=== PATIENT | female | born 1940 | race Caucasian/White ===

== ENCOUNTER → 2017-08-18 07:38 | Outpatient (CLI) | payer MEDICARE, OTHER ==
[2014-12-13 12:18] VITALS: BMI 28.2
[~2017-08-18 07:38] MED LIST: BENICAR HCT 40-1 TA1 PO; CARDURA1 MG PO; CATAPRES0.1 MG PO; HYDROCHLOROTHIA25 MG PO; LEVOTHROID112 MCG PO; MIRAPEX0.25 MG PO; MIRAPEX1 MG PO; NEURONTIN600 MG PO; NORVASC10 MG PO; NORVASC5 MG PO; NULEV0.125 MG PO; PAMELOR10 MG PO; PRILOSEC20 MG PO; PROTONIX40 MG PO; SYNTHROID125 MCG PO; VITAMIN D5000 UNIT PO; ZESTRIL40 MG PO; ZOLOFT50 MG PO
== END | disposition home or self-care (01) ==
LOC: D.RT 07:38
DX: R05 Cough (principal)

== ENCOUNTER 2017-09-06 10:31 | Emergency (ER) | payer MEDICARE, OTHER ==
[2014-12-13 12:18] VITALS: BMI 28.2
[2017-09-06 11:33] LABS: APPEARANCE CLEAR (CLEAR); BILIRUBIN NEGATIVE (NEGATIVE); COLOR YELLOW (YELLOW); GLUCOSE NEGATIVE (NEGATIVE); KETONE NEGATIVE (NEGATIVE); NITRITE NEGATIVE (NEGATIVE); PROTEIN NEGATIVE (NEGATIVE); UROBILINOGEN NORMAL (NORMAL)
[2017-09-06 11:33] LABS: BASOPHILS 0.5 % (0-2); EOSINOPHILS 1.8 % (0-7); HEMOGLOBIN 12.4 g/dL (12-16); IMMATURE GRANULOCYTES 0.5 % (0-5); LYMPHOCYTES 7.9 % (15-50); MCH 30.6 pg (26.0-34.0); MCHC 32.6 g/dL (31.0-37.0); MCV 93.8 fL (80.0-100.0); MEAN PLATELET VOLUME 10.6 fL (7.4-10.4); MONOCYTES 7.9 % (2-11); NEUTROPHILS 81.4 % (40-80); RBC 4.05 10x6/uL (4.00-5.40); RDW 14.7 % (11.5-14.5); WBC 6.1 10x3/uL (4.8-10.8)
[2017-09-06 11:35] LABS: BACTERIA MODERATE /hpf (NONE SEEN); EPITHELIAL CELLS 0-5 /hpf (0-5); RED CELLS - URINE 0-5 /hpf (0-5); WHITE CELLS - URINE 0-5 /hpf (0-5)
[2017-09-06 11:36] LABS: PLATELET COUNT 158 10x3/uL (130-400)
[2017-09-06 11:53] LABS: ALBUMIN 3.7 g/dL (3.4-5.0); ANION GAP 9.6 mmol/L (8-16); BILIRUBIN - TOTAL 0.72 mg/dL (0.2-1.3); CALCIUM 8.7 mg/dL (8.5-10.1); CARBON DIOXIDE 33.1 mmol/L (21.0-32.0); POTASSIUM - SERUM 3.7 mmol/L (3.5-5.1)
== END 2017-09-06 15:15 | disposition home or self-care (01) ==
LOC: D.ER 10:31
PROVIDERS: Nurse Practitioner Family
DX: R06.00 Dyspnea, unspecified (principal); J06.9 Acute upper respiratory infection, unspecified

== ENCOUNTER → 2017-09-09 14:06 | Outpatient (CLI) | payer MEDICARE, OTHER ==
[2014-12-13 12:18] VITALS: BMI 28.2
== END | disposition home or self-care (01) ==
LOC: D.CT 14:06
DX: J98.4 Other disorders of lung (principal)

== ENCOUNTER → 2017-09-26 11:20 | Outpatient (CLI) | payer MEDICARE, OTHER ==
[2014-12-13 12:18] VITALS: BMI 28.2
== END | disposition home or self-care (01) ==
LOC: D.CT 11:20
DX: R06.00 Dyspnea, unspecified (principal)

== ENCOUNTER 2017-10-05 12:55 | Inpatient (IN) | payer MEDICARE, OTHER ==
--- NOTE | ~2017-10-05 | EC ---
PATIENT:AVEL ARTEAGA DATE OF SERVICE: 10/06/17 SEX: F MEDICAL RECORD: [id number] DATE OF : 44 LOCATION:D.M2 D.210 AGE OF PATIENT: 77 ADMISSION DATE: 10/06/17 REFERRING PHYSICIAN: INTERPRETING PHYSICIAN: CARO ADAMS MD ECHOCARDIOGRAM REPORT ECHO CHARGES 4 ECHO COMPLETE CLINICAL DIAGNOSIS: CP ECHOCARDIOGRAPHIC MEASUREMENTS (adult normal given) AC root (d.<3.7cm) 3.5 cm LV Septum d (<1.2 cm> 1.2 cm Valve Excursion 2.2 cm LV Septum (systole) 1.7 cm Left Atria (s.<4.0cm> 3.2 cm LVPW d(<1.2cm) 1.2 cm RV (d.<2.3cm) 2.3 cm LVPW (sytole) 1.9 cm LV diastole(<5.6CM) 5.4 cm MV E-F(>70mm/sec) cm LV systole 3.3 cm LVOT Diameter 1.8 cm MV exc.(>10mm) cm Est.ejection fraction (50-75%) % Pericardial Effusion N DOPPLER: LVIT cm/sec A 31.0 cm/sec E 63.0 cm/sec LA cm/sec RVSP 24.4 mmHg LVOT 115 cm/sec AOP1/2T m/s Asc. Ao 122 cm/sec RVOT 79.0 cm/sec RA cm/sec PA 88.0 cm/sec AV Gradient Peak 6.0 mmHg AV Mean 3.0 mmHg AV Area 2.4 cm MV Gradient Peak 3.3 mmHg MV Mean 1.2 mmHg MV Area cm COMMENTS: Surgical Technology Instructor: Haris SALDANAOE Account Retention Representative: Adelina Adams TAPE# PACS DATE OF SERVICE: 10/06/2017 INDICATION: The patient has hypertensive changes. FINDINGS: 1. The left ventricular mass has increased. She has LVH that is moderate. The patient's inflow characteristics are consistent with a pseudonormalized pattern. 2. The right ventricle has mild right ventricular hypertrophy, normal size, normal function. 3. Aortic valve is normal. ECHOCARDIOGRAM REPORT [id number] AVEL ARTEAGA 4. The mitral valve is normal. 5. Tricuspid valve is normal. 6. The pericardium is normal. 7. The right atrium is normal. 8. The right ventricle is normal. CONCLUSION: The patient has evidence of mild hypertensive heart disease with normal function. TRANSINT:[id number] Voice Confirmation ID: [id number] DOCUMENT ID: [id number] CARO ADAMS MD at 0807 CC: [id number] DICTATION DATE: 10/06/17 1530 DIRECTOR DIGITAL: 10/06/17 1846 DIS IN 10/07/17 [facility] [address] [id number]
[2017-10-05 13:41] LABS: BASOPHILS 0 % (0-2); EOSINOPHILS 0.5 % (0-7); HEMATOCRIT 39.5 % (36.0-48.0); HEMOGLOBIN 12.9 g/dL (12-16); IMMATURE GRANULOCYTES 1.9 % (0-5); LYMPHOCYTES 12.5 % (15-50); MCH 30.5 pg (26.0-34.0); MCHC 32.7 g/dL (31.0-37.0); MCV 93.4 fL (80.0-100.0); MEAN PLATELET VOLUME 10.3 fL (7.4-10.4); MONOCYTES 8.2 % (2-11); NEUTROPHILS 76.9 % (40-80); PLATELET COUNT 158 10x3/uL (130-400); RBC 4.23 10x6/uL (4.00-5.40); RDW 15.2 % (11.5-14.5)
[2017-10-05 13:55] LABS: ALBUMIN 3.6 g/dL (3.4-5.0); ALKALINE PHOSPHATASE 76 U/L (46-116); ALT (SGPT) 22 U/L (10-68); BILIRUBIN - TOTAL 0.75 mg/dL (0.2-1.3); CALC OSMOLALITY 267 mosm/kg (275-300); CARBON DIOXIDE 31.4 mmol/L (21.0-32.0); CHLORIDE - SERUM 97 mmol/L (98-107); GLUCOSE 105 mg/dL (74-106); POTASSIUM - SERUM 4.1 mmol/L (3.5-5.1); PROTEIN - SERUM 6.9 g/dL (6.4-8.2); SODIUM 133 mmol/L (136-145); UREA NITROGEN 18 mg/dL (7-18); eGFR NON AFRICAN AMERICAN 57 mL/min (90-120)
[2017-10-05 14:08] LABS: CKMB 1.3 U/L (0.0-3.6); CREATINE KINASE 54 UL (21-215)
[2017-10-05 14:09] LABS: TROPONIN-I < 0.017 ng/mL (0.000-0.060)
[2017-10-05 14:56] LABS: APPEARANCE CLEAR (CLEAR); BILIRUBIN NEGATIVE (NEGATIVE); COLOR STRAW (YELLOW); GLUCOSE NEGATIVE (NEGATIVE); KETONE NEGATIVE (NEGATIVE); NITRITE NEGATIVE (NEGATIVE); PROTEIN NEGATIVE (NEGATIVE); SPECIFIC GRAVITY 1.005 (1.005-1.020); UROBILINOGEN NORMAL (NORMAL)
[2017-10-05 18:54] LABS: CKMB 1.1 U/L (0.0-3.6); CREATINE KINASE 46 UL (21-215); TROPONIN-I < 0.017 ng/mL (0.000-0.060)
[2017-10-05] MEDS ORDERED: STERAPRED DS 1010 MG PO (20:17)
[2017-10-05] MEDS ORDERED: DOXYCYCLINE HY100 M2 PO ×2 (20:18→20:19)
[2017-10-05] MEDS ORDERED: CARDURA8 MG PO (20:22)
[2017-10-05] MEDS ORDERED: COREG25 MG PO (20:22)
[2017-10-05] MEDS ORDERED: MUCINEX1200 MG/BO PO (20:24)
[2017-10-05] MEDS ORDERED: ADVAIR 500/501 DISK INH (20:25)
[2017-10-05 22:00] VITALS: BMI 32.0
[2017-10-06] VITALS (7 sets, daily range): BP systolic 118–151; BP diastolic 51–70; BMI 32.0
[2017-10-06 00:58] LABS: CKMB 1.2 U/L (0.0-3.6); CREATINE KINASE 36 UL (21-215)
[2017-10-06 00:59] LABS: TROPONIN-I 0.016 ng/mL (0.000-0.060)
[2017-10-06 06:54] LABS: CREATINE KINASE 34 UL (21-215); TROPONIN-I < 0.017 ng/mL (0.000-0.060)
[2017-10-06] MEDS ORDERED: REQUIP1 MG PO (07:44)
[2017-10-06] MEDS ORDERED: PROVENTIL/2.5 MG/3 M INH (07:46)
[2017-10-06] MEDS ORDERED: FUROSEMIDE20 MG PO (07:51)
[2017-10-06] MEDS ORDERED: K-TAB10 MEQ PO (07:51)
[2017-10-07 04:00] VITALS: BP 154/71
[2017-10-07 05:44] LABS: BASOPHILS 0.1 % (0-2); EOSINOPHILS 2.5 % (0-7); HEMATOCRIT 38.3 % (36.0-48.0); HEMOGLOBIN 12.5 g/dL (12-16); IMMATURE GRANULOCYTES 1.3 % (0-5); LYMPHOCYTES 31.6 % (15-50); MCH 30.6 pg (26.0-34.0); MCHC 32.6 g/dL (31.0-37.0); MCV 93.6 fL (80.0-100.0); MEAN PLATELET VOLUME 10.6 fL (7.4-10.4); MONOCYTES 8.9 % (2-11); NEUTROPHILS 55.6 % (40-80); PLATELET COUNT 146 10x3/uL (130-400); RBC 4.09 10x6/uL (4.00-5.40); RDW 15.2 % (11.5-14.5); WBC 9.7 10x3/uL (4.8-10.8)
[2017-10-07 06:02] LABS: ANION GAP 10.5 mmol/L (8-16); CALCIUM 8.5 mg/dL (8.5-10.1); CARBON DIOXIDE 30.1 mmol/L (21.0-32.0); POTASSIUM - SERUM 3.6 mmol/L (3.5-5.1)
[2017-10-07] MEDS ORDERED: CATAPRES0.1 MG PO (07:29)
[2017-10-07 08:46] VITALS: BP 106/73
[2017-10-10 11:16] LABS: METAN - URINE 68 ug/L (Undefined); METAN - URINE 24HR 122 ug/24 hr (45-290)
[2017-10-17 07:25] LABS: 5HIAA - 24HR 3.2 mg/24 hr (0.0-14.9); 5HIAA - UR 1.8 mg/L (Undefined)
[2017-10-17 08:18] LABS: VMA - URINE 1.6 mg/L (Undefined)
== END 2017-10-07 11:15 | disposition home or self-care (01) | DRG 305 ==
LOC: D.ER 12:55 → OBSVTIME 18:11 → D.EDHOLD 18:11 → D.M2 18:52
PROVIDERS: Family Medicine
DX: I16.1 Hypertensive emergency (principal); R07.89 Other chest pain

== ENCOUNTER → 2017-10-27 10:15 | Outpatient (CLI) | payer MEDICARE, OTHER ==
[2017-10-06 07:31] VITALS: BMI 32.0
[~2017-10-27 10:15] MED LIST changes: +ADVAIR 500/501 DISK INH; +CARDURA8 MG PO; +COREG25 MG PO; +DOXYCYCLINE HY100 M2 PO; +FUROSEMIDE20 MG PO; +K-TAB10 MEQ PO; +MUCINEX1200 MG/BO PO; +NORVASC2.5 MG PO; +PROVENTIL/2.5 MG/3 M INH; +REQUIP1 MG PO; +STERAPRED DS 1010 MG PO
== END | disposition home or self-care (01) ==
LOC: D.RT 10:15
DX: R06.00 Dyspnea, unspecified (principal)

== ENCOUNTER 2017-11-05 09:24 | Outpatient (CLI) | payer MEDICARE, OTHER ==
[~2017-11-05] VITALS: Ht 170.2 cm; Wt 95.5 kg
--- NOTE | ~2017-11-05 | OP ---
PATIENT NAME: AVEL ARTEAGA MEDICAL RECORD: [id number] :44 LOCATION:D.CAT ADMISSION DATE: SURGEON: MARCIA MACHADO MD DATE OF OPERATION: 11/05/2017 PROCEDURES: 1. Left heart catheterization. 2. Selective coronary angiography. 3. Left ventriculogram. 4. Intravascular ultrasound of left circumflex. PROCEDURE IN DETAIL: After informed consent was obtained and after detailed explanation of risks, benefits as well as alternative therapies, the patient elected to proceed with angiogram. The right radial area was prepped and draped in normal sterile fashion. The right radial artery was cannulated via modified Seldinger technique with placement of 6-Algerian sheath. All catheters exchanged through this sheath. FINDINGS: Left ventriculogram was performed in standard 30-degree DEL ROSARIO view, reveals good cardiac wall motion throughout all segments. Overall ejection fraction estimated at 60%. SELECTIVE CORONARY ANGIOGRAPHY: 1. Left main is with no significant angiographic disease. 2. Left anterior descending has mild irregularities, but no flow-limiting stenosis. 3. The left circumflex has mild irregularities, questionable area in the mid vessel is no greater than 30% confirmed by intravascular ultrasound. 4. The right coronary artery has moderate irregularities, but no flow-limiting stenosis. OVERALL IMPRESSION: Minimal coronary artery disease is present. No flow-limiting stenosis. Chest pain is noncardiac in etiology. TRANSINT:[id number] Voice Confirmation ID: [id number] DOCUMENT ID: [id number] MARCIA MACHADO MD at 1056 CC: [id number] DICTATION DATE: 11/05/17 1117 HAND SPRING REPAIRER: 11/05/17 1155 DEP CLI 11/05/17 [place] [id number] [place] [id number]
--- NOTE | ~2017-11-05 | HEMODYNAMI ---
PATIENT:AVEL ARTEAGA MEDICAL RECORD: [id number] : 44 LOCATION:SUMMER ADMISSION DATE: 11/05/17 Generatedon:11/05/201711:18 Patient name: AVEL ARTEAGA Patient #: [id number] SSN: D OB: 1940 Date of study: 11/05/2017 Page: Of Hemodynamic Procedure Report Patient Data Patient Demographics Procedure consent was obtained First Name: AVEL Gender: Female Last Name: JENNI : 1940 Patient #: [id number] Age: 77 year(s) Race: Unknown Additional ID: [id number] Contact details Address: [address] [place] [address] State: [place] City: [facility] Zip code: [address] Past Medical History Allergies Allergen Reaction Date Comments Reported Other allergy 11/05/2017 see chart Admission Admission Data Admission Date: 11/05/2017 Admission Time: 9:24 Procedure Procedure Types Cath Procedure Diagnostic Procedure C [facility] w/Coronaries FFR/IVUS Intra-Coronary IVUS Initial Procedure Description Procedure Date Procedure Date: 11/05/2017 Procedure Start Time: 11:04 Procedure End Time: 11:17 Procedure Staff Name Function Ismael Zhu MD Performing Physician Shyla Jaimes RT Monitor Melissa Liu RT Scrub Jesus Pablo RN Nurse Procedure Data Cath Procedure Fluoroscopy Diagnostic fluoroscopy Total fluoroscopy Time: 3.6 time: 3.6 min min Diagnostic fluoroscopy Total fluoroscopy dose: 694 dose: 694 mGy mGy Contrast Material Contrast Material Type Amount (ml) Isovue 300 74 Entry Location Entry Primary Successful Side Size Upsize Upsize Entry Closure Taylor ccessful Closure Location (Fr) 1 (Fr) 2 (Fr) Remarks Device Remarks Radial Right 6 Fr Mechanical TR band artery Short Compression Estimated blood loss: 10 ml Procedure Complications No complications Procedure Medications Medication Administration Route Dosage 0.9% NaCl I.V. 100 ml/hr Oxygen NC 2 l/min Heparin Flush Bag added to field 2 bags (1000units/500ml NS) Lidocaine 2% added to field 20 Radial Cocktail added to field 1 syringe (Verapomil 2mg/Nitro 400mcg/Heparin 1500units) Versed I.V. 1 mg Fentanyl I.V. 50 mcg Radial Cocktail I.A. 1 syringe (Verapomil 2mg/Nitro 400mcg/Heparin 1500units) Heparin Bolus I.V. 4000 units Fentanyl I.V. 50 mcg Versed I.V. 1 mg Hemodynamics Rest Heart Rate: 57 (bpm) Snapshots Pre Cath Intra NCS Post Cath Vital Signs Time Heart Resp SPO2 etCO2 NIBP (mmHg) Rhythm Pain Sedation Rate (ipm) (%) (mmHg) Status Level (bpm) 10:48:08 63 16 96 38.8 179/81(142) NSR 0 (11) 10(A) , No pain 10:52:33 56 16 92 30.6 155/74(133) NSR 0 (11) 10(A) , No pain 10:56:51 56 16 88 0 131/69(97) NSR 0 (11) 10(A) , No pain 11:01:11 57 17 93 12.6 137/70(106) NSR 0 (11) 9(A) , No pain 11:05:27 62 14 85 30.5 136/82(115) NSR 0 (11) 9(A) , No pain 11:09:49 63 17 94 26.1 149/67(128) NSR 0 (11) 9(A) , No pain 11:14:11 61 15 95 33.5 154/72(132) NSR 0 (11) 10(A) , No pain Medications Time Medication Route Dose Verified Delivered Reason Note s Effectiveness by by 10:51:08 0.9% NaCl I.V. 100 Jesus Jesus Per physician ml/hr Bev Pablo RN RN 10:51:18 Oxygen NC 2 l/min Jesus Jesus Per physician Bev Pablo RN RN 10:51:31 Heparin Flush added 2 bags Jesus Jesus used for Bag to Lorigan Julietteigan procedure (1000units/500ml [facility] RN RN NS) 10:51:40 Lidocaine 2% added 20ml Jesus Jesus for local to vial Lorigan Lorigan anesthetic field SRINIVASAN RN 10:51:55 Radial Cocktail added 1 Jesus Jesus used for (Verapomil to syringe Bev Pablo procedure 2mg/Nitro field RN RN 400mcg/Heparin 1500units) 10:57:22 Versed I.V. 1 mg Jesus Jesus for sedation Bev Pablo RN RN 10:57:33 Fentanyl I.V. 50 mcg Jesus Jesus for sedation Bev Pablo RN RN 11:05:25 Radial Cocktail I.A. 1 Jesus Ismael for (Verapomil syringe Bev Zhu MD vasodilation 2mg/Nitro RN 400mcg/Heparin 1500units) 11:12:00 Heparin Bolus I.V. 4000 Jesus Jesus for units Bev Pablo anticoagulation RN RN 11:12:11 Fentanyl I.V. 50 mcg Jesus Jesus for sedation Bev Pablo RN RN 11:14:03 Versed I.V. 1 mg Jesus Jesus for sedation Bev Pablo RN director of guidance in public [employer] Log Time Note 10:35:24 Shyla COLES(R) sent for patient. Start room use. 10:35:25 Time tracking: Regular hours 10:35:29 Plan of Care:Hemodynamics will remain stable., Cardiac rhythm will remain stable., Comfort level will be maintained., Respiratory function will remain adequate., Patient/ family verbilizes understanding of procedure., Procedure tolerated without complication., Recovers from procedure without complications.. 10:46:39 Patient received from Pre/Post Procedure Room to CCL 2 Alert and oriented. Tansferred to table in Supine position. 10:46:40 Warm blankets applied, and juwan hugger turned on for patient comfort. 10:46:41 Correct patient and procedure confirmed by team. 10:46:42 Signed procedure consent form obtained from patient. 10:46:43 ECG and BP/O2 sat monitors applied to patient. 10:46:44 Vital chart was started 10:51:08 0.9% NaCl 100 ml/hr I.V. was administered by Jesus Pablo RN; Per physician; 10:51:18 Oxygen 2 l/min NC was administered by Jesus Pablo RN; Per physician; 10:51:30 Baseline sample Acquired. 10:51:31 Heparin Flush Bag (1000units/500ml NS) 2 bags added to field was administered by Jesus Pablo RN; used for procedure; 10:51:35 Rhythm: paced 10:51:36 Full Disclosure recording started 10:51:40 Lidocaine 2% 20ml vial added to field was administered by Jesus Pablo RN; for local anesthetic; 10:51:45 H&P Date Dictated: 11/04/2017 Within 30 days and on chart., H&P Addendum completed by physician on day of procedure. (MUST COMPLETE FOR ALL OUTPATIENTS). 10:51:47 Pre-procedure instructions explained to patient. 10:51:55 Radial Cocktail (Verapomil 2mg/Nitro 400mcg/Heparin 1500units) 1 syringe added to field was administered by Jesus Pablo RN; used for procedure; 10:51:57 Family in waiting room. 10:51:58 Patient NPO since Midnight. 10:52:14 Patient allergic to Other allergysee chart 10:53:34 Is the patient allergic to Iodine/contrast media? No. 10:53:42 Was the patient premedicated? Yes 10:53:48 Is patient on blood thinner?No 10:53:50 Patient diabetic? No. 10:53:57 Snore? Yes 10:53:58 Sleep apnea? No 10:54:10 Patient pain scale 0/10 SOB. 10:54:18 IV patent on arrival in left forearm with 0.9% NaCl at O. 10:54:25 Lab results completed and on chart. 10:54:29 Right Radial & Right Groin area was prepped with chlora-prep and draped in sterile fashion 10:54:31 Alarms reviewed by R. N. 10:54:31 Sharps counted by scrub and verified by R.N. 10:54:32 Physician paged 10:56:05 Physician arrived 10:56:48 --------ALL STOP TIME OUT------ 10:56:51 Final Timeout: patient, procedure, and site verified with staff and physician. All members of the team are in agreement. 10:56:59 Right Radial & Right Groin site verified by team. 10:57:02 Physical assessment completed. ASA score P 2 - A patient with mild systemic disease as per Ismael Zhu MD. 10:57:07 Sedation plan: IV Moderate Sedation Medication:Versed, Fentanyl 10:57:12 Use device set Femoral Dx 10:57:14 ACIST Syringe (19518) opened to sterile field. 10:57:15 Bag Decanter (2001S) opened to sterile field. 10:57:16 Medline Cath Pack ([id number]) opened to sterile field. 10:57:22 Versed 1 mg I.V. was administered by Jesus Pablo RN; for sedation; 10:57:26 DIAGNOSTIC WIRE .035 260cm J wire (867446) opened to sterile field. 10:57:28 ACIST Hand Control (40855) opened to sterile field. 10:57:28 ACIST Manifold (96396) opened to sterile field. 10:57:30 Tegaderm 4 x 4 (1626W) opened to sterile field. 10:57:33 Fentanyl 50 mcg I.V. was administered by Jesus Pablo RN; for sedation; 10:57:44 SHEATH 6Fr Prelude Radial ([id number]) opened to sterile field. 11:01:47 Zero performed for pressure channel P1 11:03:06 Procedure started. 11:04:11 Local anesthetic to right radial artery with Lidocaine 2% by Ismael Zhu MD.INITIAL ACCESS ONLY 11:04:29 A 6 Fr Short sheath was inserted into the Right Radial artery 11:04:58 LV angiography performed. 11:05:13 GUIDE 6Fr [place] 4.0 catheter (685588) opened to sterile field. 11:05:25 Radial Cocktail (Verapomil 2mg/Nitro 400mcg/Heparin 1500units) 1 syringe I.A. was administered by Ismael Zhu MD; for vasodilation; 11:06:05 LCA angiography performed. 11:06:08 LV gram done using DEL ROSARIO 11:07:24 EF : 60 % 11:08:15 LCA angiography performed. 11:09:36 RCA angiography performed. 11:09:43 Catheter removed. 11:09:59 INFLATOR Merit BasixCompak (CU7861) opened to sterile field. 11:10:00 CHOICE PT Extra Support 182cm wire ([id number]) opened to sterile field. 11:10:01 [place] IVUS Catheter (39070S) opened to sterile field. 11:10:51 GUIDE 6FR XBLAD 3.5 catheter ([id number]) opened to sterile field. 11:10:56 Proceeding to intervention. 11:12:00 Heparin Bolus 4000 units I.V. was administered by Jesus Pablo RN; for anticoagulation; 11:12:01 6 Fr XBLAD 3.5 guide catheter was inserted over the wire 11:12:07 Choice PT wire advanced. 11:12:08 Wire advanced across lesion. 11:12:10 IVUS catheter advanced over wire. 11:12:11 Fentanyl 50 mcg I.V. was administered by Jesus Pablo RN; for sedation; 11:14:03 Versed 1 mg I.V. was administered by Jesus Pablo RN; for sedation; 11:14:44 IVUS catheter removed over wire. 11:14:52 TR BAND Standard ([id number]) opened to sterile field. 11:15:29 Wire removed. 11:15:30 Guide catheter removed. 11:15:52 Sheath removed intact; hemostasis achieved with Mechanical Compression to the Right Radial artery. 11:15:55 Procedure ended.(Physican Out) 11:16:04 Fluoroscopy time 03.60 minutes. 11:16:09 Fluoroscopy dose: 694 mGy 11:16:09 Flurop Dose total: 694 11:16:12 Contrast amount:Isovue 300 74ml. 11:16:14 Sharps counted by scrub and verified by R.N. 11:16:16 TR band inflated with 13cc of air. 11:16:18 Insertion/operative site no bleeding no hematoma. 11:16:19 Post Procedure Pulses reassessed and unchanged 11:16:23 Post-procedure physical assessment completed. ASA score P 2 - A patient with mild systemic disease as per Ismael Zhu MD. 11:16:26 Post procedure rhythm: unchanged. 11:16:29 Estimated blood loss: 10 ml 11:16:30 Post procedure instruction explained to patient.Patient verbalizes understanding. 11:16:47 Procedure type changed to Cath procedure, Diagnostic procedure, LHC, LHC w/Coronaries, FFR/IVUS, Intra-Coronary IVUS Initial 11:16:48 Procedure and supply charges have been captured, reviewed, submitted and are correct. 11:17:14 Procedure Complication : No complications 11:17:27 See physician's report for complete and final results. 11:17:29 Report given to Pre/Post Procedure Room. 11:17:32 Patient transfered to Pre/Post Procedure Room with Stretcher. 11:17:34 Procedure ended. 11:17:34 Full Disclosure recording stopped 11:18:07 Vital chart was stopped Device Usage Item Name Manufacture Quantity Catalog Number Hospital Part Current M inimal Lot# / Charge Number Stock Stock Serial# Code ACIST Syringe Acist 1 45346 605942 682527 933009 2 0 (15744) Medical Systems Inc Bag Decanter Microtek 1 2001S 128710 44827 065326 5 (2001S) Medical Inc. Medline Cath Cardinal 1 [id number] 871092 35267 048686 5 Pack Health ([id number]) DIAGNOSTIC WIRE St [place] 1 855445 181635 030051 486854 3 0 .035 260cm J wire (935481) ACIST Hand Acist 1 91276 944032 449848 398462 5 Control (75287) Medical Systems Inc ACIST Manifold Acist 1 14995 298892 524774 825665 5 (17800) Medical Systems Inc Tegaderm 4 x 4 3M 1 1626W 874475 656391 065482 5 (1626W) SHEATH 6Fr Merit 1 [id number] 743975 371954 067983 5 Prelude Radial Medical ([id number]) GUIDE 6Fr [place] Terumo 1 40-4438 955661 722819 984366 1 4.0 catheter (427004) INFLATOR Merit Merit 1 PU5956 381530 319260 058588 1 5 [employer] Inc.[facility] (ON4685) CHOICE PT Extra [place] 1 [id number] 308796 389002 924107 5 Support 182cm Scientific wire ([id number]) [place] 1 13547H 782279 262528 726367 8 [place] IVUS Catheter (47408G) GUIDE 6FR XBLAD Cardinal 1 [id number] 542111 324078 423098 1 0 3.5 catheter Health (32671503) TR BAND Terumo 1 [id number] 809157 261568 336273 4 0 Standard ([id number]) Signature Audit [place] Stage Time Signature Unsigned Intra-Procedure 11/05/2017 Shyla Jaimes 11:18:04 AM RT(R) Signatures Monitor : Shyla Jaimes Signature : RT Date : Time : [address] [place] [address]
[~2017-11-05 09:24] MED LIST changes: -NORVASC2.5 MG PO
[2017-11-05] MEDS ORDERED: NORVASC2.5 MG PO (09:41)
[2017-11-05 09:50] VITALS: BP 142/45; Ht 170.2 cm; Wt 95.5 kg
[2017-11-05 10:17] LABS: BASOPHILS 0.6 % (0-2); EOSINOPHILS 3.2 % (0-7); HEMATOCRIT 36.6 % (36.0-48.0); HEMOGLOBIN 11.6 g/dL (12-16); IMMATURE GRANULOCYTES 0.4 % (0-5); LYMPHOCYTES 28.2 % (15-50); MCH 30.4 pg (26.0-34.0); MCHC 31.7 g/dL (31.0-37.0); MCV 95.8 fL (80.0-100.0); MEAN PLATELET VOLUME 10.4 fL (7.4-10.4); MONOCYTES 11.3 % (2-11); NEUTROPHILS 56.3 % (40-80); RBC 3.82 10x6/uL (4.00-5.40); RDW 14.4 % (11.5-14.5)
[2017-11-05 10:25] LABS: ANION GAP 8.2 mmol/L (8-16); CALCIUM 8.9 mg/dL (8.5-10.1); CARBON DIOXIDE 30.4 mmol/L (21.0-32.0); CREATININE - SERUM 1.1 mg/dL (0.6-1.3); POTASSIUM - SERUM 3.6 mmol/L (3.5-5.1)
[2017-11-05 10:38] LABS: PLATELET COUNT 178 10x3/uL (130-400)
== END 2017-11-05 16:50 | disposition home or self-care (01) ==
LOC: D.CATH 09:24
PROVIDERS: Internal Medicine Interventional Cardiology
DX: R07.89 Other chest pain (principal); Z01.812 Encounter for preprocedural laboratory examination

== ENCOUNTER → 2018-01-15 10:33 | Outpatient (CLI) | payer MEDICARE, OTHER ==
[2017-11-05 09:50] VITALS: BMI 32.9
[~2018-01-15 10:33] MED LIST changes: +NORVASC2.5 MG PO
== END | disposition home or self-care (01) ==
LOC: D.CT 10:30
DX: R10.9 Unspecified abdominal pain (principal); R10.2 Pelvic and perineal pain

== ENCOUNTER → 2018-04-20 12:48 | Outpatient (CLI) | payer MEDICARE, OTHER ==
[2017-11-05 09:50] VITALS: BMI 32.9
== END | disposition home or self-care (01) ==
LOC: D.CT 12:48
DX: I70.202 Unspecified atherosclerosis of native arteries of extremities, left leg (principal)

== ENCOUNTER 2018-07-04 10:58 | Inpatient (IN) | payer MEDICARE, OTHER ==
[2018-07-04] VITALS (8 sets, daily range): BP systolic 106–150; BP diastolic 44–75; BMI 32.9
[~2018-07-04] VITALS: Ht 170.2 cm; Wt 95.5 kg
--- NOTE | ~2018-07-04 | MORECARE ---
CASE MANAGEMENT DISCHARGE SUMMARY PATIENT: AVEL ARTEAGA UNIT: [id number] ADM DATE: 07/04/18 AGE: 78 : 42 SEX: F ROOM/BED: D.7428 AUTHOR: INA DEMARCO PHYSICIAN: REFERRING PHYSICIAN: MIKAEL REED MD DATE OF SERVICE: 07/07/18 Discharge Plan Patient Name: AVEL ARTEAGA Facility: [facility]:[place] : 1940 Planned Disposition: Home Anticipated Discharge Date: 07/08/18 Discharge Date: Expected LOS: 4 Initial Reviewer: [email or web address] Initial Review Date: 07/07/2018 Generated: 07/07/18 6:34 pm Comments DCP- Discharge Planning Updated by [email or web address]: Hari Moreira on 07/07/18 4:[address] Patient Name: AVEL ARTEAGA Admission Status: ER Accout number: [id number] Admission Date: 07-04-2018 : 1940 Admission Diagnosis:SHORTNESS OF BREATH Attending: MIKAEL REED Current LOS: 3 Anticipated DC Date: 07-08-2018 Planned Disposition: Home Primary Insurance: MEDICARE A & B Discharge Planning Comments: CM MET WITH PT AND SPOUSE IN ROOM TO DISCUSS DISCHARGE PLANNING AND NEEDS. AVEL ARTEAGA provided verbal consent to discuss current and ongoing needs with/in the presence of: SPOUSE, RENETTA. PT REPORTS LIVING AT HOME INDEPENDENTLY WITH HER SPOUSE OF OVER 50 YEARS. PT HAS CPAP AND NEBULIZER FROM [facility]. PT HAS NO OUTSIDE SERVICES ASSISTING IN THE HOME. CM DISCUSSED AVAILABILITY OF HOME HEALTH, REHAB SERVICES AND MEDICAL EQUIPMENT. PT DENIES DISCHARGE NEEDS, STATES SHE HAS A PERFECT CAREGIVER IN HER SPOUSE. PT REPORTS HER SPOUSE WILL PICK HER UP FOR DISCHARGE HOME. IMPORTANT MESSAGE FROM MEDICARE PROVIDED AND EXPLAINED. PT PLANS TO DISCHARGE HOME WITH SPOUSE, HAS NO ANTICIPATED NEEDS FOR DISCHARGE. CM TO FOLLOW AND ASSIST NEEDED. Spinning And Winding Supervisor: Hari Moreira DCPIA - Discharge Planning Initial Assessment Updated by [email or web address]: Hari Moreira on 07/07/18 5:26 pm * Is the patient Alert and Oriented? Yes * How many steps to enter\exit or inside your home? * PCP DR. REED * Pharmacy [facility] * Preadmission Environment Home with Family * ADLs Independent * Equipment CPAP Nebulizer * Other Equipment [facility] PATIENT - EQUIPMENT PROVIDER * List name and contact numbers for known caregivers / representatives who currently or will assist patient after discharge: RENETTA ARTEAGA, SPOUSE, * Verbal permission to speak to the caregivers and representatives has been obtained from the patient. Yes * Community resources currently utilized None * Please name any agencies selected above. NONE * Additional services required to return to the preadmission environment? No * Can the patient safely return to the preadmission environment? Yes * Has this patient been hospitalized within the prior 30 days at any hospital? No Coverage Notice Reviewer: [email or web address] Linsey Moreira Notice Issued Date-Time: 07/07/2018 12:45 Notice Type: IM Discharge Notice Notice Delivered To: Patient Relationship to Patient: Healthcare Financial Analyst Name: Delivery Method: HAND - Hand Delivered Jodee Days: Prior Verbal Notification: Recipient Understood Notice: Yes Recipient Signature: Yes Med Rec Note Co-signed by Attending: Coverage Notice Comment: Last DP export: 07/07/18 4:25 Patient Name: AVEL ARTEAGA Page [id number] at 1734 All edits/amendments must be made on the electronic document DICTATION DATE: 07/07/181733 BUSINESS INTELLIGENCE ANALYST: ROCIO 07/07/181733 RPT#: [id number] DC DATE: STATUS: ADM IN [facility] [address] [place] [address] END OF REPORT
--- NOTE | ~2018-07-04 | EC ---
PATIENT:AVEL ARTEAGA DATE OF SERVICE: 07/04/18 SEX: F MEDICAL RECORD: [id number] DATE OF : 44 LOCATION:D. D.212 AGE OF PATIENT: 78 ADMISSION DATE: 07/04/18 REFERRING PHYSICIAN: INTERPRETING PHYSICIAN: MARCIA ZHU MD ECHOCARDIOGRAM REPORT ECHO CHARGES 4 ECHO COMPLETE Date: 07/06/18 CLINICAL DIAGNOSIS: A-FIB ECHOCARDIOGRAPHIC MEASUREMENTS (adult normal given) AC root (d.<3.7cm) 3.2 cm LV Septum d (<1.2 cm> 1.2 cm Valve Excursion 2.0 cm LV Septum (systole) 1.8 cm Left Atria (s.<4.0cm> 4.1 cm LVPW d(<1.2cm) 1.3 cm RV (d.<2.3cm) 2.4 cm LVPW (sytole) 1.8 cm LV diastole(<5.6CM) 5.1 cm MV E-F(>70mm/sec) cm LV systole 3.6 cm LVOT Diameter 1.8 cm MV exc.(>10mm) cm Est.ejection fraction (50-75%) % DOPPLER: LVIT cm/sec A cm/sec E 115 cm/sec LA cm/sec RVSP 26.0 mmHg LVOT 105 cm/sec AOP1/2T m/s Asc. Ao 108 cm/sec RVOT 74.0 cm/sec RA cm/sec PA 95.0 cm/sec AV Gradient Peak 4.6 mmHg AV Mean 2.4 mmHg AV Area 2.4 cm MV Gradient Peak 6.7 mmHg MV Mean 2.1 mmHg MV Area cm COMMENTS: Travel Money Advisor: Haris SALDANAOE Employment Security Officer: 1 Dr. Zhu TAPE# PACS Pericardial Effusion N DATE OF SERVICE: 07/06/2018 PROCEDURE: Echocardiogram. FINDINGS: 1. Left ventricular chamber size is within normal limits. Left ventricular systolic function is normal. Overall ejection fraction estimated at 55%. 2. Left atrium, right atrium, and right ventricle chamber sizes are mildly dilated. Left atrium measures 4.1 cm. 3. Valvular structures have normal structure and motion. ECHOCARDIOGRAM REPORT [id number] AVEL ARTEAGA 4. Doppler interrogation reveals xwywzxjs-bj-zsispm regurgitation, icin-va-arpmonjw tricuspid regurgitation, no other valvular insufficiency or stenosis. Pulmonary systolic pressure is estimated at 26 mmHg. 5. No evidence of pericardial effusion or left ventricular thrombus. TRANSINT:[id number] Voice Confirmation ID: [id number] DOCUMENT ID: [id number] MARCIA ZHU MD at 1704 CC: [id number] DICTATION DATE: 07/06/18 1308 HITCHER: 07/06/18 1328 ADM IN [address] [id number] [place] [address]
--- NOTE | ~2018-07-04 | HP ---
PATIENT: AVEL ARTEAGA MEDICAL RECORD: [id number] ACCOUNT: [id number] LOCATION:[address] : 44 ADMISSION DATE: 07/04/18 PCP: No PCP HISTORY AND PHYSICAL EXAMINATION DATE OF ADMISSION: 07/04/2018 CHIEF COMPLAINT: Shortness of breath. HISTORY OF PRESENT ILLNESS: This is a 78-year-old white female followed by Dr. Chávez with no history of heart trouble. She has had shortness of breath off and on for a long time but really got worse yesterday and she was brought in by EMS today. She was found to have atrial fibrillation with a controlled heart rate. Also, anemia with a hemoglobin of 10.4 (last hemoglobin that I can find was in September 2017 and it was 12.9). The patient denies any chest pain, but she has felt like her heart is beating funny, but her main thing is that she is "struggling to breathe." She is admitted for further evaluation. PAST MEDICAL HISTORY: Hypothyroidism, restless leg syndrome, GERD, osteoarthritis, fibromyalgia, hypertension, sleep apnea - on CPAP. Colonoscopy by Dr. Zhong in the past. PAST SURGICAL HISTORY: Lumbar spine surgery. She has had cataract repair. She had cholecystectomy. ALLERGIES: ODELL INHIBITORS, CEPHALOSPORINS, LEVAQUIN, AND MORPHINE. HOME MEDICATIONS: Include vitamin D3 10,000 units a week, levothyroxine 150 mcg once a day, nortriptyline 10 mg p.o. at bedtime, Prilosec or Protonix or equivalent 40 mg once a day, amlodipine 2.5 mg once a day, ropinirole 3 mg 4 times a day, doxazosin 8 mg once a day, sertraline 50 mg once a day, and carvedilol 25 mg twice a day. HABITS: She never smoked. No alcohol or drugs. SOCIAL HISTORY: , retired teacher. FAMILY HISTORY: Father of heart trouble. Mother of heart trouble. Sibling has heart trouble, diabetes, and cancer. REVIEW OF SYSTEMS: GENERAL: No major weight changes. HEENT: No particular sinus or allergy problems. RESPIRATORY: No known history of asthma or emphysema. CARDIAC: She sees Dr. Zhu maybe once a year, but she states she has no history of heart trouble. GASTROINTESTINAL: She has had reflux. GENITOURINARY: No significant problems there. MUSCULOSKELETAL: She has arthritis and fibromyalgia. NEUROLOGIC: No seizures, no migraine headaches. PSYCHIATRIC: She has some depression. PHYSICAL EXAMINATION: VITAL SIGNS: Temperature 97.9, pulse 90, respirations 18, blood pressure 150/58, O2 sat 95%. HISTORY AND PHYSICAL [id number] AVEL ARTEAGA GENERAL: She does not appear to be in acute distress. She is awake and alert. HEENT: Grossly within normal limits. NECK: Supple. No JVD or bruit. HEART: Irregularly irregular with a controlled rate. LUNGS: Fairly clear. ABDOMEN: Soft, obese, nontender. EXTREMITIES: No edema. LABORATORY DATA: CBC with a white count of 7400, hemoglobin 10.4, hematocrit 33.5. Basic metabolic panel is unremarkable. Liver functions are okay. ProBNP is elevated at 1537, iron is normal at 53, TIBC normal at 342, ferritin is normal at 24. We will check a B12 and Hemoccult stool. EKG shows atrial fibrillation with a controlled rate. Chest x-ray with borderline cardiomegaly, central vascular congestion. ASSESSMENT: 1. Shortness of breath with the new diagnosis of atrial fibrillation with a controlled rate. 2. Normocytic anemia. 3. Hypertension. 4. Hypothyroidism. PLAN: She is admitted, placed on telemetry. Cardiology is consulted. We will Hemoccult stool. Check a B12 level, check thyroid functions. Other tests or procedures as warranted. TRANSINT:[id number] Voice Confirmation ID: [id number] DOCUMENT ID: [id number] JOSEPH HYLTON MD at 1243 CC: [id number] DICTATION DATE: 07/04/182252 WRECKER DRIVER: 07/05/18 0105 ADM IN [facility] [address] [place] [address]
--- NOTE | ~2018-07-04 | MORECARE ---
CASE MANAGEMENT DISCHARGE SUMMARY PATIENT: AVEL ARTEAGA UNIT: [id number] ADM DATE: 07/04/18 AGE: 78 : 42 SEX: F ROOM/BED: D.9 AUTHOR: INA DEMARCO PHYSICIAN: REFERRING PHYSICIAN: MIKAEL REED MD DATE OF SERVICE: 07/07/18 Discharge Plan Patient Name: AVEL ARTEAGA Facility: [facility]:[place] : 1940 Planned Disposition: Home Anticipated Discharge Date: 07/08/18 Discharge Date: Expected LOS: 4 Initial Reviewer: [email or web address] Initial Review Date: 07/07/2018 Generated: 07/07/18 6:25 pm Coverage Notice Reviewer: [email or web address] - Hari Moreira Notice Issued Date-Time: 07/07/2018 12:45 Notice Type: IM Discharge Notice Notice Delivered To: Patient Relationship to Patient: Training Facilitator Name: Delivery Method: HAND - Hand Delivered Jodee Days: Prior Verbal Notification: Recipient Understood Notice: Yes Recipient Signature: Yes Med Rec Note Co-signed by Attending: Coverage Notice Comment: Patient Name: AVEL ARTEAGA Page 90212 at 1725 All edits/amendments must be made on the electronic document DICTATION DATE: 07/07/181724 ROLL PANNER: ROCIO 07/07/181724 RPT#: [id number] DC DATE: STATUS: ADM IN [place] [address] [place] [address] END OF REPORT
--- NOTE | ~2018-07-04 | MORECARE ---
CASE MANAGEMENT DISCHARGE SUMMARY PATIENT: AVEL ARTEAGA UNIT: [id number] ADM DATE: 07/04/18 AGE: 78 : 42 SEX: F ROOM/BED: D.5794 AUTHOR: INA DEMARCO PHYSICIAN: REFERRING PHYSICIAN: MIKAEL REED MD DATE OF SERVICE: 07/08/18 Discharge Plan Patient Name: AVEL ARTEAGA Facility: [facility]:[place] : 1940 Planned Disposition: Home Anticipated Discharge Date: 07/08/18 Discharge Date: 07/08/2018 Expected LOS: 4 Initial Reviewer: [email or web address] Initial Review Date: 07/07/2018 Generated: 07/08/18 12:09 pm Comments DCP- Discharge Planning Updated by [email or web address]: Hari Moreira on 07/07/18 4:[address] Patient Name: AVEL ARTEAGA Admission Status: ER Accout number: [id number] Admission Date: 07-04-2018 : 1940 Admission Diagnosis:SHORTNESS OF BREATH Attending: MIKAEL REED Current LOS: 3 Anticipated DC Date: 07-08-2018 Planned Disposition: Home Primary Insurance: MEDICARE A & B Discharge Planning Comments: CM MET WITH PT AND SPOUSE IN ROOM TO DISCUSS DISCHARGE PLANNING AND NEEDS. AVEL ARTEAGA provided verbal consent to discuss current and ongoing needs with/in the presence of: SPOUSE, RENETTA. PT REPORTS LIVING AT HOME INDEPENDENTLY WITH HER SPOUSE OF OVER 50 YEARS. PT HAS CPAP AND NEBULIZER FROM [facility]. PT HAS NO OUTSIDE SERVICES ASSISTING IN THE HOME. CM DISCUSSED AVAILABILITY OF HOME HEALTH, REHAB SERVICES AND MEDICAL EQUIPMENT. PT DENIES DISCHARGE NEEDS, STATES SHE HAS A PERFECT CAREGIVER IN HER SPOUSE. PT REPORTS HER SPOUSE WILL PICK HER UP FOR DISCHARGE HOME. IMPORTANT MESSAGE FROM MEDICARE PROVIDED AND EXPLAINED. PT PLANS TO DISCHARGE HOME WITH SPOUSE, HAS NO ANTICIPATED NEEDS FOR DISCHARGE. CM TO FOLLOW AND ASSIST NEEDED. Visual Basic Developer: Hari Moreira DCPIA - Discharge Planning Initial Assessment Updated by [email or web address]: Hari Moreira on 07/07/18 5:26 pm * Is the patient Alert and Oriented? Yes * How many steps to enter\exit or inside your home? * PCP DR. REED * Pharmacy [facility] * Preadmission Environment Home with Family * ADLs Independent * Equipment CPAP Nebulizer * Other Equipment [facility] - EQUIPMENT PROVIDER * List name and contact numbers for known caregivers / representatives who currently or will assist patient after discharge: RENETTA ARTEAGA, SPOUSE, * Verbal permission to speak to the caregivers and representatives has been obtained from the patient. Yes * Community resources currently utilized None * Please name any agencies selected above. NONE * Additional services required to return to the preadmission environment? No * Can the patient safely return to the preadmission environment? Yes * Has this patient been hospitalized within the prior 30 days at any hospital? No Coverage Notice Reviewer: [email or web address] Linsey Moreira Notice Issued Date-Time: 07/07/2018 12:45 Notice Type: IM Discharge Notice Notice Delivered To: Patient Relationship to Patient: Pharmacognosy Teacher Name: Delivery Method: HAND - Hand Delivered Jodee Days: Prior Verbal Notification: Recipient Understood Notice: Yes Recipient Signature: Yes Med Rec Note Co-signed by Attending: Coverage Notice Comment: Last DP export: 07/07/18 4:34 Patient Name: AVEL ARTEAGA Page 65001 at 1109 All edits/amendments must be made on the electronic document DICTATION DATE: 07/08/181108 WINE MAKER: ROCIO 07/08/181108 RPT#: [id number] DC DATE:07/08/18 STATUS: DIS IN [facility] [address] [place] [address] END OF REPORT
[2018-07-04] MEDS ORDERED: OMEPRAZOLE20 M1 PO (11:04)
[2018-07-04 11:44] LABS: BASOPHILS 0.3 % (0-2); EOSINOPHILS 6.9 % (0-7); HEMATOCRIT 33.5 % (36.0-48.0); HEMOGLOBIN 10.4 g/dL (12-16); IMMATURE GRANULOCYTES 0.3 % (0-5); LYMPHOCYTES 16.5 % (15-50); MCH 28.3 pg (26.0-34.0); MEAN PLATELET VOLUME 10.9 fL (7.4-10.4); PLATELET COUNT 149 10x3/uL (130-400); RBC 3.68 10x6/uL (4.00-5.40); RDW 15.2 % (11.5-14.5); WBC 7.4 10x3/uL (4.8-10.8)
[2018-07-04 11:59] LABS: ALBUMIN 3.5 g/dL (3.4-5.0); ALKALINE PHOSPHATASE 83 U/L (46-116); ALT (SGPT) 17 U/L (10-68); BILIRUBIN - TOTAL 0.55 mg/dL (0.2-1.3); CALC OSMOLALITY 274 mosm/kg (275-300); CALCIUM 8.7 mg/dL (8.5-10.1); CARBON DIOXIDE 29.9 mmol/L (21.0-32.0); CHLORIDE - SERUM 103 mmol/L (98-107); CREATININE - SERUM 0.9 mg/dL (0.6-1.3); GLUCOSE 90 mg/dL (74-106); POTASSIUM - SERUM 3.9 mmol/L (3.5-5.1); PROTEIN - SERUM 6.8 g/dL (6.4-8.2); SODIUM 138 mmol/L (136-145); UREA NITROGEN 10 mg/dL (7-18); eGFR NON AFRICAN AMERICAN 64 mL/min (90-120)
[2018-07-04 12:04] LABS: PRO BNP 1537 pg/mL (0-450); TROPONIN-I < 0.017 ng/mL (0.000-0.060)
[2018-07-04 13:36] LABS: % SATURATION 15 % (15-55); IRON 53 ug/dl (35-150); TOTAL IRON BIND CAPACITY 342 ug/dl (260-445); UNSAT IRON BIND CAPACITY 289 ug/dl (150-375)
[2018-07-04] MEDS ORDERED: NEXIUM20 MG PO (16:10)
[2018-07-04] MEDS ORDERED: VITAMIN D5000 UNIT PO (16:16)
[2018-07-04] MEDS ORDERED: MAGNESIUM OXID250 MG PO (16:34)
[2018-07-04] MEDS ORDERED: [UNRECOGNIZED DRUG - REMARK] (16:55)
[2018-07-05 03:45] VITALS: BP 114/69
[2018-07-05 06:19] LABS: BASOPHILS 0.3 % (0-2); EOSINOPHILS 5.6 % (0-7); HEMOGLOBIN 9.9 g/dL (12-16); IMMATURE GRANULOCYTES 0.6 % (0-5); LYMPHOCYTES 16.5 % (15-50); MCH 27.8 pg (26.0-34.0); MCHC 30.9 g/dL (31.0-37.0); MCV 89.9 fL (80.0-100.0); MEAN PLATELET VOLUME 11.3 fL (7.4-10.4); MONOCYTES 11.5 % (2-11); NEUTROPHILS 65.5 % (40-80); PLATELET COUNT 134 10x3/uL (130-400); RBC 3.56 10x6/uL (4.00-5.40); RDW 15.1 % (11.5-14.5); WBC 6.8 10x3/uL (4.8-10.8)
[2018-07-05 06:56] LABS: ANION GAP 11.1 mmol/L (8-16); CALCIUM 8.3 mg/dL (8.5-10.1); CARBON DIOXIDE 28.5 mmol/L (21.0-32.0); POTASSIUM - SERUM 3.6 mmol/L (3.5-5.1); T4 THYROXIN - FREE 1.46 ng/dL (0.76-1.46); THYROID STIMULATING HORMONE 1.21 uIU/mL (0.36-3.74)
[2018-07-05 08:13] VITALS: BP 127/79
[2018-07-05 11:28] VITALS: BP 112/59
[2018-07-05 16:35] VITALS: BP 122/65
[2018-07-05 20:52] VITALS: BP 124/84
[2018-07-06] VITALS: BP 122/60
[2018-07-06 04:00] VITALS: BP 133/64
[2018-07-06 08:06] VITALS: BP 127/52
[2018-07-06 11:40] VITALS: BP 127/77
[2018-07-06 14:17] VITALS: Ht 170.2 cm; Wt 95.5 kg
[2018-07-06 16:03] VITALS: BP 113/47
[2018-07-06 19:00] VITALS: BP 116/60
[2018-07-07 00:45] VITALS: BP 112/61
[2018-07-07 04:57] VITALS: BP 103/64
[2018-07-07 05:24] LABS: BASOPHILS 0.5 % (0-2); EOSINOPHILS 5.4 % (0-7); HEMATOCRIT 35.7 % (36.0-48.0); HEMOGLOBIN 11.1 g/dL (12-16); IMMATURE GRANULOCYTES 0.4 % (0-5); MCHC 31.1 g/dL (31.0-37.0); MCV 89.9 fL (80.0-100.0); MEAN PLATELET VOLUME 11.3 fL (7.4-10.4); MONOCYTES 11.1 % (2-11); NEUTROPHILS 64.6 % (40-80); RBC 3.97 10x6/uL (4.00-5.40); RDW 15.1 % (11.5-14.5); WBC 8.6 10x3/uL (4.8-10.8)
[2018-07-07 05:44] LABS: PLATELET COUNT 182 10x3/uL (130-400)
[2018-07-07 05:55] LABS: ALBUMIN 3.3 g/dL (3.4-5.0); ANION GAP 11.7 mmol/L (8-16); BILIRUBIN - TOTAL 0.46 mg/dL (0.2-1.3); CALCIUM 8.7 mg/dL (8.5-10.1); CARBON DIOXIDE 30.6 mmol/L (21.0-32.0); CREATININE - SERUM 1.2 mg/dL (0.6-1.3); POTASSIUM - SERUM 3.3 mmol/L (3.5-5.1); PROTEIN - SERUM 6.9 g/dL (6.4-8.2)
[2018-07-07 08:40] VITALS: BP 112/55
[2018-07-07 12:22] VITALS: BP 104/51
[2018-07-07 14:19] LABS: IMMUNOFIXATION Note: (()); IMMUNOGLOBULIN A 120 mg/dL (64-422); IMMUNOGLOBULIN G 721 mg/dL (700-1600); IMMUNOGLOBULIN M 65 mg/dL (26-217)
[2018-07-07 17:10] LABS: SPE - A/G RATIO 1.1 (0.7-1.7); SPE - ALBUMIN 3.2 g/dL (2.9-4.4); SPE - ALPHA-1 GLOBULIN 0.3 g/dL (0.0-0.4); SPE - ALPHA-2 GLOBULIN 0.7 g/dL (0.4-1.0); SPE - GAMMA GLOBULIN 0.8 g/dL (0.4-1.8); SPE - M-SPIKE Not Observed g/dL (Not Observed)
[2018-07-07 20:42] VITALS: BP 94/48
[2018-07-08 01:09] VITALS: BP 110/57
[2018-07-08 04:48] VITALS: BP 103/62
[2018-07-08 06:19] LABS: BASOPHILS 0.3 % (0-2); HEMATOCRIT 34.4 % (36.0-48.0); HEMOGLOBIN 10.9 g/dL (12-16); IMMATURE GRANULOCYTES 0.4 % (0-5); MCH 28.1 pg (26.0-34.0); MCHC 31.7 g/dL (31.0-37.0); MCV 88.7 fL (80.0-100.0); MEAN PLATELET VOLUME 11.9 fL (7.4-10.4); MONOCYTES 11.4 % (2-11); NEUTROPHILS 63.9 % (40-80); PLATELET COUNT 187 10x3/uL (130-400); RBC 3.88 10x6/uL (4.00-5.40); RDW 15.2 % (11.5-14.5); WBC 9.3 10x3/uL (4.8-10.8)
[2018-07-08 06:48] LABS: ANION GAP 12.1 mmol/L (8-16); CALCIUM 8.6 mg/dL (8.5-10.1); CARBON DIOXIDE 29.1 mmol/L (21.0-32.0); CREATININE - SERUM 1.1 mg/dL (0.6-1.3); POTASSIUM - SERUM 3.2 mmol/L (3.5-5.1)
[2018-07-08] MEDS ORDERED: ELIQUIS5 MG PO (07:33)
[2018-07-08] MEDS ORDERED: LOPRESSOR25 MG PO (07:34)
[2018-07-08] MEDS ORDERED: LASIX20 MG PO (07:35)
[2018-07-08] MEDS ORDERED: K-DUR20 MEQ PO ×2 (07:35→07:47)
[2018-07-08 08:09] VITALS: BP 118/40
== END 2018-07-08 10:56 | disposition home or self-care (01) | DRG 811 ==
LOC: D.ER 10:58 → D.M2 14:11 → D.EDHOLD 14:11 → D.MS 15:15 → D.M2 15:29
PROVIDERS: Emergency Medicine; Family Medicine; Internal Medicine Hematology & Oncology
DX: D50.9 Iron deficiency anemia, unspecified (principal); I50.31 Acute diastolic (congestive) heart failure; I16.1 Hypertensive emergency; I11.0 Hypertensive heart disease with heart failure; E03.9 Hypothyroidism, unspecified; G25.81 Restless legs syndrome; G47.30 Sleep apnea, unspecified; E66.01 Morbid (severe) obesity due to excess calories; Z68.32 Body mass index [BMI] 32.0-32.9, adult; I48.91 Unspecified atrial fibrillation; K21.9 Gastro-esophageal reflux disease without esophagitis

== ENCOUNTER 2018-08-12 10:07 | Outpatient (CLI) | payer MEDICARE, BC ==
[~2018-08-12] VITALS: Ht 170.2 cm; Wt 95.5 kg
--- NOTE | ~2018-08-12 | HEMODYNAMI ---
PATIENT:AVEL ARTEAGA MEDICAL RECORD: [id number] : 44 LOCATION:SUMMER ADMISSION DATE: 08/12/18 Generatedon:08/12/201812:19 Patient name: AVEL ARTEAGA Patient #: [id number] SSN: D OB: 1940 Date of study: 08/12/2018 Page: Of Hemodynamic Procedure Report Patient Data Patient Demographics Procedure consent was obtained First Name: AVEL Gender: Female Last Name: JENNI : 1940 Patient #: [id number] Age: 78 year(s) Race: Unknown Additional ID: [id number] Contact details Address: [address] [place] [address] State: [place] City: [facility] Zip code: [address] Past Medical History Allergies Allergen Reaction Date Comments Reported Other allergy 11/05/2017 see chart Other allergy 08/12/2018 ANCEF, CECLOR, DURACT, KEFLEX, LEVAQUIN, MORPHINE Admission Admission Data Admission Date: 08/12/2018 Admission Time: 10:07 Height (in.): 67 BSA: 2.08 (m2) Height (cm.): 170.18 BMI: 33.52 (kg/m2) Weight (lbs.): 214 Weight (kg.): 97.07 Procedure Procedure Types Cath Procedure Diagnostic Procedure Cardioversion External Procedure Description Procedure Date Procedure Date: 08/12/2018 Procedure Start Time: 12:07 Procedure End Time: 12:18 Procedure Staff Name Function Ismael Zhu MD Performing Physician Antoni Don RT Monitor Shanta Owens RN Nurse Dane Ceron RN Nurse Binh Whittington CRNA Additional personnel Staci Yañez RT Monitor Procedure Data Cath Procedure Estimated blood loss: 0 ml Procedure Complications No complications Procedure Medications Medication Administration Route Dosage Oxygen etCO2 Nasal cannula 2 l/min Refer to Anesthesia Notes for Sedation Medications Hemodynamics Rest BSA: 2.08 (m2) O2 Consumption: Estimated: 282.88 (ml/min) O2 Consumption indexed : Estimated:136 (ml/min/m) Pre Cath Intra NCS Post Cath Vital Signs Time Heart Resp SPO2 etCO2 NIBP (mmHg) Rhythm Pain Sedation Rate (ipm) (%) (mmHg) Status Level (bpm) 11:53:33 87 15 97 0 128/88(115) A-Fib 0 (11) 10(A) , No pain 11:59:23 100 24 98 25.6 137/75(117) A-Fib 0 (11) 10(A) , No pain 12:03:52 98 22 94 36.9 145/76(110) A-Fib 0 (11) 10(A) , No pain 12:08:24 69 25 97 10.5 133/80(113) NSR 0 (11) 9(A) , No pain 12:12:54 55 19 100 11.3 123/65(80) NSR 0 (11) 9(A) , No pain 12:15:49 52 22 100 9.8 120/63(97) NSR 0 (11) 10(A) , No pain Medications Time Medication Route Dose Verified Delivered Reason Notes Effective ness by by 12:04:17 Oxygen etCO2 2 Ismael Womack used for Nasal l/min Marko Owens marketing associate cannula 12:04:55 Refer to Ismael Womack Anesthesia Marko Owens RN Notes for Sedation Medications Procedure Log Time Note 11:30:17 Dane Ceron RN sent for patient. Start room use. 11:30:30 Time tracking: Regular hours (M-F 7:00 - 5:00) 11:30:34 Plan of Care:Hemodynamics will remain stable., Cardiac rhythm will remain stable., Comfort level will be maintained., Respiratory function will remain adequate., Patient/ family verbilizes understanding of procedure., Procedure tolerated without complication., Recovers from procedure without complications.. 11:45:50 Patient arrived from PCU to CCL 3. Patient remains on bed/stretcher for procedure. 11:51:58 Warm blankets applied, and juwan hugger turned on for patient comfort. 11:51:58 Correct patient and procedure confirmed by team. 11:52:00 Signed procedure consent form obtained from patient. 11:52:00 ECG and BP/O2 sat monitors applied to patient. 11:52:08 Vital chart was started 11:52:59 Rhythm: atrial fibrillation 11:53:01 Full Disclosure recording started 11:53:12 H&P Date Dictated: 08/06/2018 Within 30 days and on chart., H&P Addendum completed by physician on day of procedure. (MUST COMPLETE FOR ALL OUTPATIENTS). 11:53:12 Pre-procedure instructions explained to patient. 11:53:13 Pre-op teaching completed and patient verbalized understanding. 11:53:15 Family in waiting room. 11:53:17 Patient NPO since Midnight. 11:53:19 Is the patient allergic to Iodine/contrast media? No. 11:53:21 Is patient on blood thinner?Yes 11:53:32 ACC The patient was administered the following blood thiners within the last 24 hours: Eliquis 11:53:34 Patient diabetic? No. 11:53:36 Previous problem with sedation/anesthesia? No ? 11:53:37 Snore? Yes 11:53:38 Sleep apnea? Yes 11:53:44 Deviated septum? No 11:53:44 Opens mouth fully? Yes 11:53:45 Sticks out tongue? Yes 11:53:46 Airway obstruction? No ? 11:53:48 Dentures? No ? 11:59:31 Binh Whittington CRNA present and monitoring patient for TIVA. 11:59:35 Quick Combo opened to sterile field. 11:59:36 Quick combo pads placed on patients chest and back. 11:59:59 Patient pain scale 0/10 ?. 12:00:05 IV patent on arrival in left forearm with 0.9% NaCl at O. 12:00:07 Lab results completed and on chart. 12:00:11 Alarms reviewed by Kaye Price 12:04:17 Oxygen 2 l/min etCO2 Nasal cannula was administered by Shanta Owens RN; used for procedure; 12:04:55 Refer to Anesthesia Notes for Sedation Medications was administered by Shanta Owens RN; ; 12:05:48 Patient allergic to Other allergyANCEF, CECLOR, DURACT, KEFLEX, LEVAQUIN, MORPHINE 12:05:57 Patient Height : 67 inches 12:05:59 Patient Weight : 214 lbs 12:06:03 --------ALL STOP TIME OUT------ 12:06:03 Final Timeout: patient, procedure, and site verified with staff and physician. All members of the team are in agreement. 12:06:09 Physical assessment completed. ASA score P 3 - A patient with severe systemic disease as per Ismael Zhu MD. 12:06:12 Sedation plan: TIVA Medication:Propofol 12:07:51 Procedure started. 12:09:35 Defibrillator synced and charged to 275 Joules. 12:09:43 Shock delivered. 12:09:51 Patient cardioverted to sinus rhythm . 12:10:09 Procedure ended.(Physican Out) 12:12:31 Post-procedure physical assessment completed. ASA score P 3 - A patient with severe systemic disease as per Ismael Zhu MD. 12:12:36 Post procedure rhythm: sinus bradycardia 12:12:38 Estimated blood loss: 0 ml 12:12:41 Post procedure instruction explained to patient.Patient verbalizes understanding. 12:12:41 Patient needs reinforcement of post procedure teaching. 12:12:57 Procedure and supply charges have been captured, reviewed, submitted and are correct. 12:12:59 Procedure Complication : No complications 12:18:15 Vital chart was stopped 12:18:15 See physician's report for complete and final results. 12:18:18 Report given to Pre/Post Procedure Room. 12:18:20 Patient transfered to Pre/Post Procedure Room with Bed. 12:18:22 Procedure ended. 12:18:22 Full Disclosure recording stopped 12:18:28 End room use (Document Last) Device Usage Item Manufacture Quantity Catalog Hospital Part Current Minimal Lot# / Name Number Charge Number Belen givens# Code [employer] 1 [id number] Combo Signature Audit [place] Stage Time Signature Unsigned Intra-Procedure 08/12/2018 Staci Yañez 12:19:47 PM RT(R) Signatures Monitor : Antoni Don RT Signature : Date : Time : Monitor : Staci Yañez Signature : RT Date : Time : [facility] [address] [place] [address]
[~2018-08-12 10:07] MED LIST changes: +ELIQUIS5 MG PO; +K-DUR20 MEQ PO; +LASIX20 MG PO; +LOPRESSOR25 MG PO; +MAGNESIUM OXID250 MG PO; +NEXIUM20 MG PO; +OMEPRAZOLE20 M1 PO; +[UNRECOGNIZED DRUG - REMARK]
[2018-08-12] MEDS ORDERED: FERROUS SULFAT325 MG PO (10:26)
[2018-08-12 10:38] VITALS: BP 127/58; Ht 170.2 cm; Wt 95.5 kg
[2018-08-12 10:50] LABS: BASOPHILS 0.4 % (0-2); EOSINOPHILS 4.2 % (0-7); HEMATOCRIT 38.4 % (36.0-48.0); HEMOGLOBIN 12.3 g/dL (12-16); IMMATURE GRANULOCYTES 0.2 % (0-5); LYMPHOCYTES 18.9 % (15-50); MCH 29.8 pg (26.0-34.0); MEAN PLATELET VOLUME 11.1 fL (7.4-10.4); MONOCYTES 8.3 % (2-11); PLATELET COUNT 153 10x3/uL (130-400); RBC 4.13 10x6/uL (4.00-5.40); RDW 17.7 % (11.5-14.5); WBC 5.5 10x3/uL (4.8-10.8)
[2018-08-12 10:54] LABS: ANION GAP 12.5 mmol/L (8-16); CARBON DIOXIDE 29.4 mmol/L (21.0-32.0); CREATININE - SERUM 0.9 mg/dL (0.6-1.3); POTASSIUM - SERUM 3.9 mmol/L (3.5-5.1)
[2018-08-12 10:56] LABS: APTT 34.2 SECONDS (22.8-39.4); INR 1.15 (0.85-1.17); PROTIME 14.2 SECONDS (11.6-15.0)
--- NOTE | 2018-08-12 12:45 | NUR ---
DR. MACHADO ROUNDED AND UPDATED THEM ON PT'S STATUS.
--- NOTE | 2018-08-12 13:10 | NUR ---
PT IN NSR. RATE 65. BP STABLE. FAMILY AT BEDSIDE.
--- NOTE | 2018-08-12 13:21 | NUR ---
LEFT AC PIV D/C'D WITH CATH TIP INTACT. PT AMBULATED TO RESTROOM. VOIDED WITHOUT DIFFICULTY.
--- NOTE | 2018-08-12 13:48 | NUR ---
DISCUSSED DISCHARGE INSTRUCTIONS WITH PT. SHE VOICED UNDERSTANDING. WAITING ON TO GET BACK FROM RUNNING ERRANDS. PT INSTRUCTED TO GET UP AND GET DRESSED.
--- NOTE | 2018-08-12 14:00 | NUR ---
PT TAKEN OUT BY WHEELCHAIR. NO S/S OF DISTRESS NOTED. ALL PAPERWORK AND BELONGINGS IN HAND.
--- NOTE | 2018-08-25 13:28 | OP ---
PATIENT NAME: AVEL ARTEAGA MEDICAL RECORD: [id number] :44 LOCATION:D.CAT ADMISSION DATE: SURGEON: MARCIA MACHADO MD DATE OF OPERATION: 08/12/2018 PROCEDURE: DC cardioversion. INDICATION: Atrial fibrillation. PROCEDURE IN DETAIL: IV conscious sedation was per anesthesia. Continuous heart rate, O2 saturation, blood pressure monitoring all undertaken, all of which remained stable. She received 1 shock at 275 joules restoring sinus rhythm. OVERALL IMPRESSION: Successful DC cardioversion from atrial fibrillation to sinus rhythm. TRANSINT:[id number] Voice Confirmation ID: [id number] DOCUMENT ID: [id number] MARCIA MACHADO MD at 1328 CC: [id number] DICTATION DATE: 08/12/18 1210 THEATRE ARTS PROFESSOR: 08/12/18 1233 DEP CLI 08/12/18 [address] [place] [address]
== END 2018-08-12 14:00 | disposition home or self-care (01) ==
LOC: D.CATH 10:07
PROVIDERS: Internal Medicine Interventional Cardiology
DX: I48.91 Unspecified atrial fibrillation (principal); Z01.812 Encounter for preprocedural laboratory examination

== ENCOUNTER 2019-02-23 09:55 | Observation (INO) | payer MEDICARE, BC ==
[~2019-02-23] VITALS: Ht 170.2 cm; Wt 90.9 kg
--- NOTE | ~2019-02-23 | PN ---
PATIENT:AVEL ARTEAGA MEDICAL RECORD: [id number] LOCATION:D. D.211 ADMISSION DATE: 02/23/19 PROGRESS NOTE DATE OF SERVICE: 02/24/2019 DIAGNOSES: 1. Angina. 2. Atrial fibrillation. 3. Coronary artery disease. 4. Hypertension. HISTORY OF PRESENT ILLNESS: Mrs. Arteaga was admitted with chest discomfort as well as new onset atrial fibrillation. Last cardiac catheterization was in October 2017. At that time, no intervention was undertaken, but she did have coronary artery disease. She never became pain free overnight. Her chest pain has worsened this morning. She states that her chest pain is relatively crushing despite rate control. She is still in atrial fibrillation, heart rates in the 60s-70s. She has significant ongoing chest discomfort. At this time, she is on maximal medical therapy with heart rates in the 60s. Systolic blood pressure 100-110. She does remain in atrial fibrillation, but controlled atrial fibrillation would not explain the crushing chest pain that is she is having. We will proceed with coronary angiography as well as DC cardioversion. Further care depends upon the findings of the angiography. TRANSINT:[id number] Voice Confirmation ID: [id number] DOCUMENT ID: [id number] MARCIA MACHADO MD CC: [id number] DICTATION DATE: 02/24/19 0946 PAPER COATING SUPERVISOR: 02/24/19 1001 ADM IN [facility] [address] [place] [address]
--- NOTE | ~2019-02-23 | HEMODYNAMI ---
PATIENT:AVEL ARTEAGA MEDICAL RECORD: [id number] : 44 [id number] ADMISSION DATE: 02/23/19 Generatedon:02/24/201911:54 Patient name: AVEL ARTEAGA Patient #: [id number] SSN: D OB: 1940 Date of study: 02/24/2019 Page: Of Hemodynamic Procedure Report Patient Data Patient Demographics Procedure consent was obtained First Name: AVEL Gender: Female Last Name: JENNI : 1940 Patient #: [id number] Age: 78 year(s) Race: Unknown Additional ID: [id number] Contact details Address: [address] [place] [address] State: [place] City: [facility] Zip code: [address] Past Medical History Allergies Allergen Reaction Date Comments Reported Other allergy 11/05/2017 see chart Other allergy 08/12/2018 ANCEF, CECLOR, DURACT, KEFLEX, LEVAQUIN, MORPHINE Admission Admission Data Admission Date: 02/23/2019 Admission Time: 17:50 Admit Source: Emergency department Room #: D.2114 Lab Results Lab Result Date: 02/24/2019 Lab Result Time: 4:30 Biochemistry Name Units Result Min Max BUN mg/dl 26 --(----)-* 7 18 Creatinine mg/dl 1.1 --(--*-)-- 0.6 1.3 CBC Name Units Result Min Max Hematocrit % 42 --(*---)-- 42 54 Hemoglobin g/dl 14.4 --(*---)-- 13.5 17.5 Procedure Procedure Types Cath Procedure Diagnostic Procedure LHC LHC w/Coronaries Cardioversion External Procedure Description Procedure Date Procedure Date: 02/24/2019 Procedure Start Time: 11:36 Procedure End Time: 11:43 Procedure Staff Name Function Ismael Zhu MD Performing Physician Melissa Liu RT Monitor Bao Mac RT Scrub Awilda Modi RN Nurse Elie Mesco CAP JEWEL PLATE ASSEMBLER Additional personnel Procedure Data Cath Procedure Fluoroscopy Diagnostic fluoroscopy Total fluoroscopy Time: 0.8 time: 0.8 min min Diagnostic fluoroscopy Total fluoroscopy dose: 454 dose: 454 mGy mGy Contrast Material Contrast Material Type Amount (ml) Isovue 300 56 Entry Location Entry Primary Successful Side Size Upsize Upsize Entry Closure Succes sful Closure Location (Fr) 1 (Fr) 2 (Fr) Remarks Device Remarks Femoral Right 5 Fr Exoseal artery Estimated blood loss: 5 ml Diagnostic catheters Device Type Used For End Catheter Placement MULTIPACK Pigtail 5 Fr LV Angiography catheter MULTIPACK JL 4.0 5Fr Left Coronary catheter Angiography MULTIPACK 3DRC 5Fr Right Coronary catheter Angiography Procedure Complications No complications Procedure Medications Medication Administration Route Dosage 0.9% NaCl I.V. 100 ml/hr Oxygen 6 l/min Lidocaine 2% added to field 20 Heparin Flush Bag added to field 2 bags (1000units/500ml NS) Refer to Anesthesia Notes for Sedation Medications Hemodynamics Rest HGB: 14.4 (g/dl) Heart Rate: 119 (bpm) Snapshots Pre Cath Intra NCS Post Cath Vital Signs Time Heart Resp SPO2 etCO2 NIBP (mmHg) Rhythm Pain Sedation Rate (ipm) (%) (mmHg) Status Level (bpm) 11:27:00 102 14 98 32 115/69(81) A-Fib 0 (11) 10(A) , No pain 11:31:59 107 16 100 33 Measuring A-Fib 0 (11) 10(A) , No pain 11:32:07 106 15 100 34 138/74(101) A-Fib 0 (11) 10(A) , No pain 11:36:09 53 14 97 33 107/56(78) SB 0 (11) 5(A) , No pain 11:40:43 52 17 96 15.7 106/55(85) SB 0 (11) 10(A) , No pain Medications Time Medication Route Dose Verified Delivered Reason Notes Effe ctiveness by by 11:27:48 0.9% NaCl I.V. 100 Ismael Kaiser used for ml/hr Marko Modi veneer gluer 11:28:06 Oxygen simple 6 Ismael Awilda used for mask l/min Marko Modi veneer gluer 11:28:14 Lidocaine 2% added 20ml Ismael Guevara for local to vial Marko Zhu MD anesthetic field 11:28:18 Heparin Flush added 2 Ismael Guevara used for Bag to bags Marko Zhu MD procedure (1000units/500ml field NS) 11:28:24 Refer to Ismael Guevara Anesthesia Notes Marko Zhu MD for Sedation Medications Procedure Log Time Note 11:05:16 Awilda Modi RN sent for patient. Start room use. 11:12:35 Informed consent obtained and on chart 11:12:40 Admit Source: Emergency department 11:13:07 Diagnostic Cath status Urgent 11:14:53 Time tracking: Regular hours (M-F 7:00 - 5:00) 11:14:58 Plan of Care:Hemodynamics will remain stable., Cardiac rhythm will remain stable., Comfort level will be maintained., Respiratory function will remain adequate., Patient/ family verbilizes understanding of procedure., Procedure tolerated without complication., Recovers from procedure without complications.. 11:16:02 Lab Result : BUN 26 mg/dl 11:16:02 Lab Result : Hematocrit 42 % 11:16:02 Lab Result : Hemoglobin 14.4 g/dl 11:16:02 Lab Result : Creatinine 1.1 mg/dl 11:16:11 H&P Date Dictated: 02/24/2019 Within 30 days and on chart.. 11:16:20 Patient received from Med II to CCL 2 Alert and oriented. Tansferred to table in Supine position. 11:16:21 Warm blankets applied, and juwan hugger turned on for patient comfort. 11:16:21 Correct patient and procedure confirmed by team. 11:16:22 ECG and BP/O2 sat monitors applied to patient. 11:26:05 Baseline sample Acquired. 11:26:05 Vital chart was started 11:26:12 Rhythm: atrial fibrillation 11:26:13 Full Disclosure recording started 11:26:14 Pre-procedure instructions explained to patient. 11::14 Pre-op teaching completed and patient verbalized understanding. 11:26:17 Family in patients room. 11:26:23 Patient NPO since Midnight. 11:26:24 Is the patient allergic to Iodine/contrast media? No. 11:26:25 Was the patient premedicated? No 11:26:40 Is patient on blood thinner?Yes 11:26:45 ACC The patient was administered the following blood thiners within the last 24 hours: Eliquis 11:26:58 Patient diabetic? No. 11:27:03 Previous problem with sedation/anesthesia? No ? 11:27:25 Snore? Yes 11:27:27 Sleep apnea? Yes 11:27:28 Deviated septum? No 11:27:29 Opens mouth fully? Yes 11:27:29 Opens mouth fully? Yes 11:27:30 Sticks out tongue? Yes 11:27:32 Airway obstruction? No ? 11:27:35 Dentures? No ? 11:27:44 Pre procedure: right dorsailis pedis pulse 2+ Normal; easily identifiable; not easily obliterated 11:27:46 Pre procedure: left dorsailis pedis pulse 2+ Normal; easily identifiable; not easily obliterated 11:27:48 0.9% NaCl 100 ml/hr I.V. was administered by Awilda Modi RN; used for procedure; 11:27:48 Patient pain scale 0/10 ?. 11:27:53 IV patent on arrival in left forearm with 0.9% NaCl at [facility]. 11:27:55 Lab results completed and on chart. 11:27:58 Right groin area was prepped with chlora-prep and draped in sterile fashion 11::59 Alarms reviewed by R. N. 11:27:59 Sharps counted by scrub and verified by R.N. 11:28:06 Oxygen 6 l/min simple mask was administered by Awilda Modi RN; used for procedure; 11:28:10 Elie Carvalho CRNA present and monitoring patient for TIVA. 11:28:12 Quick combo pads placed on patients chest and back. 11:28:14 Lidocaine 2% 20ml vial added to field was administered by Ismael Zhu MD; for local anesthetic; 11:28:18 Heparin Flush Bag (1000units/500ml NS) 2 bags added to field was administered by Ismael Zhu MD; used for procedure; 11:28:24 Refer to Anesthesia Notes for Sedation Medications was administered by Ismael Zhu MD; ; 11:31:05 Physician paged 11:34:02 Physician arrived 11:34:02 --------ALL STOP TIME OUT------ 11:34:03 Final Timeout: patient, procedure, and site verified with staff and physician. All members of the team are in agreement. 11:34:04 Right groin site verified by team. 11:34:08 Fire Safety Assessment: A--An alcohol-based skin anteseptic being used preoperatively., C--Open oxygen or nitrous oxide is being used., D--An ESU, laser, or fiber-optic light is being used. 11:34:12 Sedation plan: IV Moderate Sedation Medication:Versed, Fentanyl 11:34:18 Procedure started. 11:34:20 Use device set Femoral Dx 11:34:22 ACIST Syringe (94403) opened to sterile field. 11:34:22 Bag Decanter (2002S) opened to sterile field. 11:34:22 Medline Cath Pack ([id number]) opened to sterile field. 11:34:24 ACIST Hand Control (89686) opened to sterile field. 11:34:24 ACIST Manifold (71541) opened to sterile field. 11:34:24 DIAGNOSTIC Multipack 5Fr catheter set (FQ7289) opened to sterile field. 11:34:25 Tegaderm 4 x 4 (1626W) opened to sterile field. 11:34:26 EMERALD Guide Wire (870-270) opened to sterile field. 11:34:27 SHEATH 5FR [place] (DXV201) opened to sterile field. 11:34:43 3a) 45-59 Moderately reduced kidney function. 11:36:43 Local anesthetic to right femoral artery with Lidocaine 2% by Ismael Zhu MD.INITIAL ACCESS ONLY 11:37:17 Defibrillator synced and charged to 275 Joules. 11:37:20 Shock delivered. 11:37:25 Patient cardioverted to sinus rhythm . 11:37:30 A 5 Fr sheath was inserted into the Right Femoral artery 11:37:39 A MULTIPACK Pigtail 5 Fr catheter was advanced over the wire and used for LV Angiography. 11:37:42 LV hemodynamics recorded. 11:37:43 LV gram done using DEL ROSARIO 11:37:45 Injector settings: Ml/sec: 5, Volume: 15, 11:37:51 EF : 50 % 11:37:53 Catheter removed. 11:37:57 A MULTIPACK JL 4.0 5Fr catheter was advanced over the wire and used for Left Coronary Angiography. 11:38:00 LCA angiography performed. 11:38:03 Injector settings: Ml/sec: 3, Volume: 6, 11:38:50 Catheter removed. 11:38:59 A MULTIPACK 3DRC 5Fr catheter was advanced over the wire and used for Right Coronary Angiography. 11:39:41 RCA angiography performed. 11:39:43 Injector settings: Ml/sec: 3, Volume: 6, 11:39:52 Catheter removed. 11:39:54 EXOSEAL 5Fr (EX500) opened to sterile field. 11:41:21 Sheath removed intact; hemostasis achieved with Exoseal to the Right Femoral artery. 11:41:30 Procedure ended.(Physican Out) 11:41:57 Fluoroscopy time 00.80 minutes. 11:42:01 Fluoroscopy dose: 454 mGy 11:42:01 Flurop Dose total: 454 11:42:17 Contrast amount:Isovue 300 56ml. 11:42:23 Sharps counted by scrub and verified by R.N. 11:42:24 Insertion/operative site no bleeding no hematoma. 11:42:26 Post-op/insertion site Right Femoral artery dressed using a 4 x 4 and Tegaderm. 11:42:29 Post procedure rhythm: unchanged. 11:42:31 Estimated blood loss: 5 ml 11:42:32 Post procedure instruction explained to patient.Patient verbalizes understanding. 11:42:33 Patient needs reinforcement of post procedure teaching. 11:42:41 Procedure and supply charges have been captured, reviewed, submitted and are correct. 11:42:45 Procedure Complication : No complications 11:42:47 Vital chart was stopped 11:42:48 See physician's report for complete and final results. 11:43:07 Report given to Pre/Post Procedure Room. 11:43:09 Patient transfered to Pre/Post Procedure Room with Stretcher. 11:43:11 Procedure ended. 11:43:11 Full Disclosure recording stopped 11:43:18 End room use (Document Last) 11:43:38 Quick Combo opened to sterile field. Device Usage Item Name Manufacture Quantity Catalog Hospital Part Current Minima l Lot# / Number Charge Number Stock Stock Serial# Code [facility] Acist 1 29640 682829 274637 730352 20 Syringe [employer] (90650) ngmoco Inc Bag Microtek 1 972457 94151 123313 5 Decanter [employer]. () Medline Medline 1 [id number] 895156 58812 552101 5 Cath Pack ([id number]) ACIST Hand Acist 1 00996 633447 103952 118203 5 Control Medical (20910) Systems Inc ACIST Acist 1 97694 460572 488403 787556 5 Manifold Medical (82675) Systems Inc DIAGNOSTIC Cardinal 1 FA7509 145350 22154 401397 30 Multipack Health 5Fr catheter set (KE6757) Tegaderm 4 3M 1 1626W 300965 905609 722782 5 x 4 (1626W) EMERALD Cardinal 1 502-455 066936 944783 060193 5 Guide Wire Health (502455) SHEATH 5FR Terumo 1 GCO914 622485 012774 198367 5 [place] (SGY250) MULTIPACK Cardinal 1 712815 5 Pigtail 5 Health Fr catheter MULTIPACK Cardinal 1 598348 5 JL 4.0 5Fr Health catheter MULTIPACK Cardinal 1 868280 5 3DRC 5Fr Health catheter EXOSEAL 5Fr Cardinal 1 EX500 732452 678850 030482 10 (EX500) Health Quick Combo Edge Systems 1 74736-986583 744152 762903 076307 5 Signature Audit Marshall Stage Time Signature Unsigned Intra-Procedure 02/24/2019 Melissa Liu 11:54:28 AM RT(R) Signatures Performing Physician : Signature : Ismael Zhu MD Date : Time : Monitor : Melissa Liu RT Signature : Date : Time : Nurse : Awilda Modi RN Signature : Date : Time : [facility] [address] [facility] [place] [address]
--- NOTE | ~2019-02-23 | OP ---
PATIENT NAME: AVEL ARTEAGA MEDICAL RECORD: [id number] :44 LOCATION:D.M2 D.2114 ADMISSION DATE:02/23/19 SURGEON: MARCIA MACHADO MD DATE OF OPERATION: 02/24/2019 PROCEDURES: 1. DC cardioversion. 2. Left heart catheterization. 3. Selective coronary angiography. 4. Left ventriculogram. INDICATION: Atrial fibrillation, angina. PROCEDURE IN DETAIL: After informed consent was obtained and after a detailed description of risks, benefits as well as alternative therapies, the patient elected to proceed with angiogram and heart catheterization and cardioversion. The right femoral area was prepped and draped in normal sterile fashion. Right femoral artery was cannulated via modified Seldinger technique with placement of a 5-Welsh sheath. All catheters exchanged through this sheath. FINDINGS: Left ventriculogram was performed in standard 30-degree DEL ROSARIO view, reveals preserved cardiac wall motion, ejection fraction 50%. SELECTIVE CORONARY ANGIOGRAPHY: 1. Left main is with no significant angiographic disease. 2. Left anterior descending has mild irregularities, but no flow-limiting stenosis. 3. The left circumflex has mild irregularities, but no flow-limiting stenosis. 4. Right coronary artery has [id number]-[id number]-ydbtwaxp irregularities, but no flow-limiting stenosis. DC CARDIOVERSION: The patient received 1 shock with 275 joules restoring sinus rhythm. OVERALL IMPRESSION: No significant coronary artery disease is present. Normal left ventricular function. Symptomatology was secondary to the atrial fibrillation. The patient was successfully cardioverted from atrial fibrillation to sinus rhythm. TRANSINT:[id number] Voice Confirmation ID: [id number] DOCUMENT ID: [id number] MARCIA MACHADO MD CC: [id number] DICTATION DATE: 02/24/19 1143 ENTERPRISE RESOURCE PLANNER: 02/24/19 1153 ADM IN [place] [id number] [place] [address]
--- NOTE | ~2019-02-23 | EC ---
PATIENT:AVEL ARTEAGA DATE OF SERVICE: 02/23/19 SEX: F MEDICAL RECORD: [id number] DATE OF : 44 LOCATION:D.M2 D.211 AGE OF PATIENT: 78 ADMISSION DATE: 02/23/19 REFERRING PHYSICIAN: INTERPRETING PHYSICIAN: MARCIA ZHU MD ECHOCARDIOGRAM REPORT ECHO CHARGES 4 ECHO COMPLETE Date: 02/23/19 CLINICAL DIAGNOSIS: A-FIB ECHOCARDIOGRAPHIC MEASUREMENTS (adult normal given) AC root (d.<3.7cm) 3.2 cm LV Septum d (<1.2 cm> 1.7 cm Valve Excursion 1.9 cm LV Septum (systole) 2.0 cm Left Atria (s.<4.0cm> 4.3 cm LVPW d(<1.2cm) 1.6 cm RV (d.<2.3cm) 1.7 cm LVPW (sytole) 2.0 cm LV diastole(<5.6CM) 4.3 cm MV E-F(>70mm/sec) cm LV systole 3.3 cm LVOT Diameter 1.8 cm MV exc.(>10mm) cm Est.ejection fraction (50-75%) % DOPPLER: LVIT cm/sec A cm/sec E 97.0 cm/sec LA cm/sec RVSP mmHg LVOT 92.0 cm/sec AOP1/2T m/s Asc. Ao 107 cm/sec RVOT 82.0 cm/sec RA cm/sec PA 100 cm/sec AV Gradient Peak 4.6 mmHg AV Mean 2.7 mmHg AV Area 1.9 cm MV Gradient Peak 4.1 mmHg MV Mean 1.9 mmHg MV Area cm COMMENTS: Tongue Binder: Haris SALDANAOE Stations Superintendent: 1 Dr. Zhu TAPE# PACS Pericardial Effusion N DATE OF SERVICE: 02/23/2019 FINDINGS: 1. Left ventricular chamber size is within normal limits. Left ventricular systolic function is normal at 55%. 2. Left atrium is enlarged at 4.3 cm. Right atrium and right ventricular chamber sizes are as well mildly dilated. 3. Valvular structures have normal structure and motion. 4. Doppler interrogation reveals only trace mitral regurgitation. No other valvular insufficiency or stenosis. ECHOCARDIOGRAM REPORT [id number] AVEL ARTEAGA 5. No evidence of pericardial effusion or left ventricular thrombus. TRANSINT:[id number] Voice Confirmation ID: [id number] DOCUMENT ID: [id number] MARCIA ZHU MD CC: [id number] DICTATION DATE: 02/24/19 1148 PRIMARY CARE NURSE: 02/24/19 1155 ADM IN [place] [id number] [place] [address]
--- NOTE | ~2019-02-23 | DS ---
PATIENT:AVEL ARTEAGA :44 MEDICAL RECORD: [id number] DISCHARGE SUMMARY ADMISSION DATE: 02/23/19 DISCHARGE DATE: 02/24/19 DISCHARGE DIAGNOSES: 1. Atrial fibrillation. 2. Angina. 3. Coronary artery disease. 4. Hypertension. HOSPITAL COURSE: Mrs. Arteaga presents with chest discomfort that worsened in atrial fibrillation. She, however, underwent cardiac catheterization revealing no significant disease. She underwent DC cardioversion. Her symptoms resolved with catholic of sinus rhythm. OVERALL IMPRESSION: Successful DC cardioversion from atrial fibrillation to sinus rhythm. At this time, her Lopressor was stopped. She was started on sotalol 80 mg b.i.d. Follow up with [facility] in 1 month. TRANSINT:[id number] Voice Confirmation ID: [id number] DOCUMENT ID: [id number] MARCIA MACHADO MD CC: [id number] DICTATION DATE: 02/24/19 1145 PROTOCOL OFFICER: 02/24/19 2347 DIS IN 02/24/19 [place] [id number] [place] [id number]
[~2019-02-23 09:55] MED LIST changes: +FERROUS SULFAT325 MG PO
[2019-02-23 10:05] VITALS: BP 128/81
--- NOTE | 2019-02-23 10:19 | NUR ---
PATIENT VIA [facility] WITH CC OF "JUST NOT FEELING RIGHT - LIKE MY HEART WASN'T RIGHT." PT REPORTS ONE PREVIOUS EPISODE OF AFIB THAT SHE HAD TO BE "SHOCKED FOR" - CURRENTLY ON ELOQUIS - PT GIVEN ASA, O2, IV. NITRO PRIOR TO ARRIVAL IN ED. PT IS AAOX4 - INDEPENDENTLY AMBULATED TO BED AND BATHROOM - DENIES DIZZINESS, NAUSEA, VOMITING - REPORTS "A LITTLE BIT OF CHEST PRESSURE OR LIKE MY HEART IS JUST NOT RIGHT" - DURING ASSESSMENT PT QUANTIFIES THE PRESSURE/PAIN 3/10 - PT IS AT BEDSIDE
[2019-02-23 10:22] LABS: BASOPHILS 0.6 % (0-2); EOSINOPHILS 4.9 % (0-7); HEMATOCRIT 43.6 % (36.0-48.0); HEMOGLOBIN 14.4 g/dL (12-16); IMMATURE GRANULOCYTES 0.3 % (0-5); LYMPHOCYTES 28.5 % (15-50); MCH 31.9 pg (26.0-34.0); MCV 96.7 fL (80.0-100.0); MEAN PLATELET VOLUME 11.4 fL (7.4-10.4); MONOCYTES 7.9 % (2-11); NEUTROPHILS 57.8 % (40-80); PLATELET COUNT 171 10x3/uL (130-400); RBC 4.51 10x6/uL (4.00-5.40); RDW 13.5 % (11.5-14.5); WBC 6.3 10x3/uL (4.8-10.8)
[2019-02-23 10:32] LABS: ALBUMIN 3.7 g/dL (3.4-5.0); ALKALINE PHOSPHATASE 96 U/L (46-116); ALT (SGPT) 20 U/L (10-68); CALC OSMOLALITY 284 mosm/kg (275-300); CALCIUM 8.9 mg/dL (8.5-10.1); CARBON DIOXIDE 31.1 mmol/L (21.0-32.0); CHLORIDE - SERUM 103 mmol/L (98-107); GLUCOSE 112 mg/dL (74-106); PROTEIN - SERUM 7.4 g/dL (6.4-8.2); SODIUM 141 mmol/L (136-145); UREA NITROGEN 22 mg/dL (7-18); eGFR NON AFRICAN AMERICAN 57 mL/min (90-120)
[2019-02-23 10:33] LABS: POTASSIUM - SERUM 4.4 mmol/L (3.5-5.1)
[2019-02-23 10:45] LABS: CKMB 0.9 U/L (0.0-3.6); CREATINE KINASE 100 UL (21-215); MAGNESIUM - SERUM 2.2 mg/dL (1.8-2.4); TROPONIN-I < 0.017 ng/mL (0.000-0.060)
[2019-02-23 11:00] VITALS: BP 120/67
[2019-02-23 11:04] LABS: INR 1.19 (0.85-1.17); PROTIME 14.6 SECONDS (11.6-15.0)
[2019-02-23 11:05] LABS: APTT 35.9 SECONDS (22.8-39.4)
[2019-02-23 12:00] VITALS: BP 113/68
--- NOTE | 2019-02-23 12:55 | NUR ---
PT RESTING COMFORTABLY - DENIES NEEDS AT THIS TIME - AT BEDSIDE
--- NOTE | 2019-02-23 15:01 | MORECARE ---
CASE MANAGEMENT DISCHARGE SUMMARY PATIENT: AVEL ARTEAGA UNIT: [id number] ADM DATE: AGE: 78 : 42 SEX: F ROOM/BED: AUTHOR: INA DEMARCO PHYSICIAN: REFERRING PHYSICIAN: LUI GARCIA MD DATE OF SERVICE: 02/23/19 Discharge Plan Patient Name: AVEL ARTEAGA Facility: [facility]:[place] : 1940 Planned Disposition: Anticipated Discharge Date: Discharge Date: Expected LOS: 0 Initial Reviewer: [email or web address] Initial Review Date: 02/23/2019 Generated: 02/23/19 4:01 pm Comments DCP- Discharge Planning Updated by [email or web address]: Mary Be on 02/23/19 1:[address] Patient Name: AVEL ARTEAGA Admission Status: ER Accout number: [id number] Admission Date: 02-23-2019 : 1940 Admission Diagnosis: Attending: LUI GARCIA Current LOS: 1 Anticipated DC Date: Planned Disposition: Primary Insurance: MEDICARE A & B Discharge Planning Comments: PATIENT RESTING WITH EYES CLOSED, I MET WITH HER ABOUT DC PLANNING/NEEDS. STATES NO NEEDS THAT HE IS AWARE OF, PLANS TO DC TO HOME WHEN WELL. CM TO FOLLOW AND ASSIST NEEDED WITH DC PLANNING. Staff Development Manager: Mary Be DCPIA - Discharge Planning Initial Assessment Updated by [email or web address]: Mary Be on 02/23/19 2:57 pm * Is the patient Alert and Oriented? No * PCP BRIANNA * Pharmacy [facility] * Preadmission Environment Home with Family * ADLs Independent * List name and contact numbers for known caregivers / representatives who currently or will assist patient after discharge: RENETTA, , * Additional services required to return to the preadmission environment? No * Can the patient safely return to the preadmission environment? Yes * Has this patient been hospitalized within the prior 30 days at any hospital? No Patient Name: AVEL ARTEAGA Page 04998 at 1501 All edits/amendments must be made on the electronic document DICTATION DATE: 02/23/19 1501 SUPERVISOR YARD: ROCIO 02/23/19 1501 RPT#: [id number] DC DATE: STATUS: REG [facility] [address] [place] [address] END OF REPORT
--- NOTE | 2019-02-23 16:25 | NUR ---
MEDS LATE DUE TO WAIT FROM PHARMACY
[2019-02-23 16:38] LABS: CKMB 0.7 U/L (0.0-3.6); CREATINE KINASE 81 UL (21-215)
[2019-02-23 16:39] LABS: TROPONIN-I 0.017 ng/mL (0.000-0.060)
--- NOTE | 2019-02-23 19:17 | NUR ---
PATIENT ARRIVED TO UNIT VIA STRETCHER FROM ER. PATIENT IS ALERT AND ORIENTED, RESPIRATIONS ARE EVEN AND UNLABORED. NO S/S OF DISTRESS. NO C/O PAIN. PATIENT HUNGRY. PATIENT GIVEN SANDWICH BOX. ALL OTHER NEEDS MET. FAMILY AT BEDSIDE. CALLL IGHT WITHIN REACH. WILL CPOC.
[2019-02-23 20:00] VITALS: BP 106/52
[2019-02-23 23:00] LABS: CKMB 1.2 U/L (0.0-3.6); CREATINE KINASE 87 UL (21-215); TROPONIN-I 0.028 ng/mL (0.000-0.060)
[2019-02-23 23:15] VITALS: BP 106/52; Ht 170.2 cm; Wt 90.9 kg
[2019-02-24] VITALS: BP 109/46
[2019-02-24 04:00] VITALS: BP 113/77
[2019-02-24 06:18] LABS: BASOPHILS 0.4 % (0-2); HEMOGLOBIN 14.4 g/dL (12-16); IMMATURE GRANULOCYTES 0.3 % (0-5); LYMPHOCYTES 29.9 % (15-50); MCH 33.1 pg (26.0-34.0); MCHC 34.3 g/dL (31.0-37.0); MCV 96.6 fL (80.0-100.0); MEAN PLATELET VOLUME 11.4 fL (7.4-10.4); NEUTROPHILS 56.4 % (40-80); PLATELET COUNT 186 10x3/uL (130-400); RBC 4.35 10x6/uL (4.00-5.40); RDW 13.5 % (11.5-14.5); WBC 7.5 10x3/uL (4.8-10.8)
[2019-02-24 06:56] LABS: ALBUMIN 3.4 g/dL (3.4-5.0); ALKALINE PHOSPHATASE 93 U/L (46-116); ALT (SGPT) 16 U/L (10-68); CALC OSMOLALITY 283 mosm/kg (275-300); CALCIUM 8.5 mg/dL (8.5-10.1); CARBON DIOXIDE 30.6 mmol/L (21.0-32.0); CHLORIDE - SERUM 102 mmol/L (98-107); CKMB 0.7 U/L (0.0-3.6); CREATINE KINASE 86 UL (21-215); CREATININE - SERUM 1.1 mg/dL (0.6-1.3); GLUCOSE 99 mg/dL (74-106); POTASSIUM - SERUM 3.8 mmol/L (3.5-5.1); PROTEIN - SERUM 6.8 g/dL (6.4-8.2); SODIUM 140 mmol/L (136-145); TROPONIN-I < 0.017 ng/mL (0.000-0.060); UREA NITROGEN 26 mg/dL (7-18); eGFR NON AFRICAN AMERICAN 51 mL/min (90-120)
--- NOTE | 2019-02-24 07:57 | NUR ---
TELEMETRY CAF. RESP UL ON 02 2L NC. REFUSES SCDS. CALL LIGHT IN REACH.
[2019-02-24 09:55] VITALS: BP 119/55
--- NOTE | 2019-02-24 11:18 | NUR ---
CONSENTS SIGNED. LEAVING FOR SERVOMECHANISM ASSEMBLER BY BED.
--- NOTE | 2019-02-24 11:44 | HP ---
PATIENT: AVEL ARTEAGA MEDICAL RECORD: [id number] ACCOUNT: [id number] LOCATION:[address] : 44 ADMISSION DATE: 02/23/19 PCP: MIKAEL REED MD HISTORY AND PHYSICAL EXAMINATION DIAGNOSES: 1. Atrial fibrillation. 2. Chest pain. 3. Hypertension. 4. Eliquis anticoagulation. HISTORY OF PRESENT ILLNESS: Mrs. Arteaga presents with chest discomfort and palpitations, found to be in atrial fibrillation. Her last episode of atrial fibrillation required cardioversion and that was performed in August of this year. She is on metoprolol as well as Eliquis. PHYSICAL EXAMINATION: GENERAL APPEARANCE: Well-nourished, well-developed, appears stated age. Level of distress, comfortable. PSYCHIATRIC: Mental status, alert, normal affect. Orientation, oriented to time, place and person. EYES: Lids and conjunctiva, noninjected. No discharge, no pallor. ENT: Lips, teeth, gums, normal dentition. Oropharynx, no cyanosis, no pallor. NECK: Carotid arteries, bilateral normal upstroke, no bruits, no thrills. JUGULAR VEINS: No jugular venous pressure or distention. CERVICAL LYMPH NODES: Nontender, nonenlarged. THYROID: Not enlarged. Nontender. No nodules. LUNGS: Respiratory effort, unlabored. CHEST: Normal curvature. No thoracic deformity. No chest wall tenderness. Percussion, resonant. Auscultation, clear. No wheezes, no rales, no rhonchi. CARDIOVASCULAR: Precordial exam, nondisplaced. No heaves or pericardial thrills. Rate and rhythm, regular. Heart sounds, normal S1, normal S2. No S3, no gallop, no rub. Systolic murmur, not heard. Diastolic murmur, not heard. EXTREMITIES: No cyanosis, no edema. Peripheral pulses, full and equal in all extremities, except as noted. No bruits appreciated. ABDOMEN: Soft, nondistended. Normal aorta. No bruit. Nontender. No masses. Liver, nontender, no hepatomegaly. Spleen, nontender, no splenomegaly. MUSCULOSKELETAL: No joint tenderness. No joint swelling. No erythema. NEUROLOGICAL: Normal gait, normal strength, normal tone. SKIN: Warm and dry. OVERALL IMPRESSION: Recurrent atrial fibrillation. At this time, we will discontinue the metoprolol, place her on sotalol. If she remains in atrial fibrillation tomorrow, we will proceed with DC cardioversion. TRANSINT:[id number] Voice Confirmation ID: [id number] DOCUMENT ID: [id number] HISTORY AND PHYSICAL [id number] AVEL ARTEAGA JEFFREY MD at 1144 CC: [id number] DICTATION DATE: 02/23/19 1558 INVESTMENT MANAGER: 02/23/19 1619 ADM IN [place] [id number] [place] [id number]
--- NOTE | 2019-02-24 12:00 | NUR ---
PT RECEIVED VIA STRETCHER FROM LOGISTICS PLANNING ENGINEER FOR RECOVERY. PT SLEEPY BUT VERBALLY AROUSABLE. 5FR EXOCELE TO R GROIN, DRESSING CDI NO BLEEDING OR SWELLING NOTED. LEG PINK AND WARM, PEDAL PULSES PALPABLE. PT C/O RESTLESS LEG, INSTRUCTED THE IMPORTANCE OF KEEPING LEG STRAIGHT AND HEAD ON PILLOW, SHE VERBALIZED UNDERSTANDING. HR SINUS MANUEL, RATE 54, BP 123/70, O2 SAT 98. O2 ON VIA NC AT 2L IV INFUSING VIA GRAVITY IN L HAND. CALL LIGHT IN REACH, NO FAMILY AT BS
--- NOTE | 2019-02-24 12:30 | NUR ---
PT RESTING MORE COMFORTABLY, RESTLESS LEG SOME BETTER. R GROIN REMAINS CDI NO BLEEDING OR HEMATOMA NOTED. LEG PINK AND WARM, PEDAL PULSES PALPABLE. SPRITE SERVED PER REQUEST. AT BEDSIDE, CALL LIGHT IN REACH. VSS.
--- NOTE | 2019-02-24 13:12 | NUR ---
R GROIN REMAINS SOFT, NO BLEEDING OR SWELLING NOTED. HOB ELEVATED SLIGHTLY. SANDWICH TRAY SERVED. HR NSR RATE 59, BP 115/58. PT HAS NO C/O AT THIS TIME. AT BEDSIDE. CALL LIGHT IN REACH
--- NOTE | 2019-02-24 13:42 | NUR ---
DISCHARGE INSTRUCTIONS REVIEWED W PT AND , BOTH VERBALIZED UNDERSTANDING. IV REMOVED W CATH INTACT, MONITORS AND O2 REMOVED. GROIN DRESSING REMAINS CDI NO BLEEDING OR SWELLING NOTED. PT UP TO DRESS FOR DISCHARGE
[2019-02-24] MEDS ORDERED: BETAPACE 80 MG80 MG PO (13:43)
--- NOTE | 2019-02-24 13:55 | NUR ---
PT AMBULATED TO BR, VOIDING W/O DIFFICULITY. 1400 PT DISCHARGED VIA WC TO PRIVATE VEHICLE WITH ALL BELONGINGS.
== END 2019-02-24 14:05 | disposition home or self-care (01) ==
LOC: D.ER 09:55 → D.M2 17:50 → OBSVTIME 17:52 → D.CLR 02-24 12:08
PROVIDERS: Family Medicine; ADMIT Internal Medicine Interventional Cardiology; ATTEND Internal Medicine Interventional Cardiology
PROC: 4A023N7 Measurement of Cardiac Sampling and Pressure, Left Heart, Percutaneous Approach (ICD-10-PCS; 2019-02-24)
PROC: B2111ZZ Fluoroscopy of Multiple Coronary Arteries using Low Osmolar Contrast (ICD-10-PCS; principal; 2019-02-24 11:05)
PROC: B2151ZZ Fluoroscopy of Left Heart using Low Osmolar Contrast (ICD-10-PCS; 2019-02-24 11:05)
DX: I25.119 Atherosclerotic heart disease of native coronary artery with unspecified angina pectoris (principal); I10 Essential (primary) hypertension; I48.91 Unspecified atrial fibrillation; R07.9 Chest pain, unspecified

== ENCOUNTER 2019-09-09 01:16 | Inpatient (IN) | payer MEDICARE, BC ==
[~2019-09-09] VITALS: Ht 170.2 cm; Wt 97.0 kg
--- NOTE | ~2019-09-09 | HEMODYNAMI ---
PATIENT:AVEL ARTEAGA MEDICAL RECORD: [id number] : 44 [id number] ADMISSION DATE: 09/09/19 Generatedon:09/10/201913:45 Patient name: AVEL ARTEAGA Patient #: [id number] SSN: D OB: 1940 Date of study: 09/10/2019 Page: Of Hemodynamic Procedure Report Patient Data Patient Demographics Procedure consent was obtained First Name: AVEL Gender: Female Last Name: JENNI : 1940 Patient #: [id number] Age: 79 year(s) Race: Unknown Additional ID: [id number] Contact details Address: [address] [place] [address] State: [place] City: [facility] Zip code: [address] Past Medical History Allergies Allergen Reaction Date Comments Reported Other allergy 11/05/2017 see chart Other allergy 08/12/2018 ANCEF, CECLOR, DURACT, KEFLEX, LEVAQUIN, MORPHINE Other allergy 09/10/2019 cephalaxin, cefaclor, cefadroxil, cefazolin sodium, levofloxacin, morphine, oxycodone Admission Admission Data Admission Date: 09/09/2019 Admission Time: 2:06 Arrival Date: 09/10/2019 Arrival Time: 0:00 Admit Source: Other Insurance Payor: Medicare Room #: D.2114 [facility] #: [id number] Height (in.): 67 BSA: 2.08 (m2) Height (cm.): 170.18 BMI: 33.51 (kg/m2) Weight (lbs.): 213.94 Weight (kg.): 97.04 Lab Results Lab Result Date: 09/10/2019 Lab Result Time: 0:00 Biochemistry Name Units Result Min Max BUN mg/dl 16 --(---*)-- 7 18 Creatinine mg/dl 1.1 --(--*-)-- 0.6 1.3 eGFR ml/min 51 *-(----)-- 90 120 NONAFRICAN CBC Name Units Result Min Max Hematocrit % 41.5 -*(----)-- 42 54 Hemoglobin g/dl 13.4 -*(----)-- 13.5 17.5 Procedure Procedure Types Cath Procedure Diagnostic Procedure Cardioversion External Procedure Description Procedure Date Procedure Date: 09/10/2019 Procedure Start Time: 0:00 Procedure Staff Name Function Ismael Zhu MD Performing Physician Kadie Mar RT Monitor Anibal Terry RT Scrub Jesus Pablo RN Nurse Mian Garcia CRNA Additional personnel Indication Arrhythmia Atrial Fib Procedure Data Procedure Complications No complications Procedure Medications Medication Administration Route Dosage 0.9% NaCl I.V. 100 ml/hr Oxygen etCO2 Nasal cannula 5 l/min Refer to Anesthesia Notes for Sedation Medications Hemodynamics Rest BSA: 2.08 (m2) HGB: 13.4 (g/dl) O2 Consumption: Estimated: 209 (ml/min) O2 Consu mption indexed: Estimated:100.48 (ml/min/m) Heart Rate: 96 (bpm) Snapshots Pre Cath Intra NCS Post Cath Vital Signs Time Heart Resp SPO2 etCO2 NIBP (mmHg) Rhythm Pain Sedation Rate (ipm) (%) (mmHg) Status Level (bpm) 13:19:47 89 18 96 28.5 148/87(132) A-Fib 0 (11) 10(A) , No pain 13:24:03 84 23 98 19.5 144/79(125) A-Fib 0 (11) 10(A) , No pain 13:28:35 53 9 78 0 113/49(89) A-Fib 0 (11) 10(A) , No pain 13:34:01 47 25 90 35.3 97/49(78) A-Fib 0 (11) 10(A) , No pain 13:38:13 45 17 92 9.7 102/51(68) A-Fib 0 (11) 10(A) , No pain 13:42:27 50 22 95 24.8 116/55(97) NSR 0 (11) 10(A) , No pain Medications Time Medication Route Dose Verified Delivered Reason Notes Effective ness by by 13:23:14 0.9% NaCl I.V. 100 Jesus Yeothy Per ml/hr Bev Pablo physician RN RN 13:23:32 Oxygen etCO2 5 Jesus Lee for low Nasal l/min Bev Pablo 02 sats cannula RN RN 13:27:28 Refer to Jesus Lee for Anesthesia Bev Pablo sedation Notes for RN RN Sedation Medications Procedure Log Time Note 13:10:00 Anibal Terry RT(R) sent for patient. Start room use. 13:16:43 Diagnostic Cath Status : Elective 13:17:58 Indication : Arrhythmia Atrial Fib 13:18:03 Procedure Status Elective Heart Cath (OP). 13:18:19 Time tracking: Regular hours (M-F 7:00 - 5:00) 13:18:24 Plan of Care:Hemodynamics will remain stable., Cardiac rhythm will remain stable., Comfort level will be maintained., Respiratory function will remain adequate., Patient/ family verbilizes understanding of procedure., Procedure tolerated without complication., Recovers from procedure without complications.. 13:18:33 Patient received from Pre/Post Procedure Room to [facility] 3 Alert and oriented. Tansferred to table in Supine position. 13:18:35 Signed procedure consent form obtained from patient. 13:18:36 Warm blankets applied, and juwan hugger turned on for patient comfort. 13:18:37 Correct patient and procedure confirmed by team. 13:18:37 ECG and BP/O2 sat monitors applied to patient. 13:18:39 Full Disclosure recording started 13:18:40 Vital chart was started 13:18:55 H&P Date Dictated: 09/09/2019 Within 30 days and on chart.. 13:18:56 Pre-procedure instructions explained to patient. 13:18:56 Pre-op teaching completed and patient verbalized understanding. 13:18:58 Family in waiting room. 13:19:00 Patient NPO since Midnight. 13:19:52 Patient allergic to Other allergycephalaxin, cefaclor, cefadroxil, cefazolin sodium, levofloxacin, morphine, oxycodone 13:19:56 Is the patient allergic to Iodine/contrast media? No. 13:21:02 Previous problem with sedation/anesthesia? No ? 13:21:04 Snore? Yes 13:21:06 Sleep apnea? Yes 13:21:07 Deviated septum? No 13:21:08 Opens mouth fully? Yes 13:21:09 Sticks out tongue? Yes 13:21:15 Airway obstruction? No ? 13:21:18 Dentures? No ? 13:21:24 Patient not . Patient is over age 55. 13:21:26 If diabetic: On Metformin? No 13:21:31 Patient diabetic? No. 13:21:35 Is patient on blood thinner?No 13:21:42 Baseline sample Acquired. 13:21:48 Rhythm: atrial fibrillation 13:22:15 IV patent on arrival in left hand with 0.9% NaCl at [facility]. 13:22:26 Stress Test: no; N/A ? 13:22:29 Lab results completed and on chart. 13:23:03 Lab Result : BUN 16 mg/dl 13:23:03 Lab Result : Creatinine 1.1 mg/dl 13:23:03 Lab Result : eGFR NONAFRICAN 51 ml/min 13:23:03 Lab Result : Hemoglobin 13.4 g/dl 13:23:03 Lab Result : Hematocrit 41.5 % 13:23:09 Alarms reviewed by R. N. 13:23: Sharps counted by scrub and verified by R.N. 13:23:14 0.9% NaCl 100 ml/hr I.V. was administered by Jesus Pablo RN; Per physician; Verbal order read back and verified. 13:23:30 Quick Combo opened to sterile field. 13:23:32 Oxygen 5 l/min etCO2 Nasal cannula was administered by Jesus Pablo RN; for low 02 sats; Verbal order read back and verified. 13:25:36 Arrival Date: 09/10/2019 12:00:00 AM 13:25:37 Admit Source: Other 13:25:43 Insurance Payor : Medicare 13:26:09 Patient Height : 67 inches 13:26:14 Patient Weight : 213.94 lbs 13::22 --------ALL STOP TIME OUT------ 13::22 Final Timeout: patient, procedure, and site verified with staff and physician. All members of the team are in agreement. 13:26:36 Fire Safety Assessment: A--An alcohol-based skin anteseptic being used preoperatively., C--Open oxygen or nitrous oxide is being used., D--An ESU, laser, or fiber-optic light is being used. 13:26:41 Physical assessment completed. ASA score P 2 - A patient with mild systemic disease as per Ismael Zhu MD. 13:27:01 Sedation plan: TIVA Medication:Propofol 13:27:05 Mian Garcia CRNA present and monitoring patient for TIVA. 13:27:28 Refer to Anesthesia Notes for Sedation Medications was administered by Jesus Pablo RN; for sedation; Verbal order read back and verified. 13:27:34 ------Cardioversion------ 13:27:35 Quick combo pads placed on patients chest and back. 13:28:05 Defibrillator synced and charged to 275 Joules. 13:28:07 Shock delivered. 13:28:23 Patient cardioverted to asytole. 13:28:42 Procedure ended.(Physican Out) 13:28:55 Sharps counted by scrub and verified by R.N. 13:29:37 Post-procedure physical assessment completed. ASA score P 2 - A patient with mild systemic disease as per Ismael Zhu MD. 13:29:43 Post procedure rhythm: sinus rhythm 13:29:45 Post procedure instruction explained to patient.Patient verbalizes understanding. 13:29:46 Patient needs reinforcement of post procedure teaching. 13:30:22 Procedure and supply charges have been captured, reviewed, submitted and are correct. 13:30:26 Procedure Complication : No complications 13:30:31 [facility] Findings: mild to moderate CAD (<70%) 13:30:33 Operative report dictated upon procedure completion. 13:30:33 See physician's report for complete and final results. 13:30:35 Report given to Pre/Post Procedure Room. 13:30:38 Patient transfered to Pre/Post Procedure Room with Stretcher. 13:44:38 Vital chart was stopped 13:44:42 End room use (Document Last) 13:45:03 End room use (Document Last) 13:45:23 End room use (Document Last) Device Usage Item Manufacture Quantity Catalog Hospital Part Current Minimal Lot# / Name Number Charge Number Stock Stock Anshu givens# Code [employer] 1 [id number] Combo Signature Audit [place] Stage Time Signature Unsigned Intra-Procedure 09/10/2019 Kadie Mar 1:45:03 PM RT(R) Intra-Procedure 09/10/2019 Jesus 1:45:23 PM Bev SRINIVASAN Intra-Procedure 09/10/2019 Ismael Zhu 1:45:41 PM [place] [id number] [place] [address]
--- NOTE | ~2019-09-09 | OP ---
PATIENT NAME: AVEL ARTEAGA MEDICAL RECORD: [id number] :44 LOCATION:D.M2 D.2114 ADMISSION DATE:09/09/19 SURGEON: MARCIA MACHADO MD DATE OF OPERATION: 09/10/2019 PROCEDURE: DC cardioversion. INDICATION: Atrial fibrillation. PROCEDURE IN DETAIL: IV conscious sedation was per anesthesia. Continuous heart rate, O2 saturation, blood pressure monitoring all undertaken, all of which remains stable. She received 1 shock restoring sinus rhythm. OVERALL IMPRESSION: Successful DC cardioversion from atrial fibrillation to sinus rhythm. TRANSINT:[id number] Voice Confirmation ID: [id number] DOCUMENT ID: [id number] MARCIA MACHADO MD CC: [id number] DICTATION DATE: 09/10/19 1334 PLANT MACHINIST: 09/10/192054 DIS IN 09/10/19 [facility] [address] [place] [address]
[~2019-09-09 01:16] MED LIST changes: +BETAPACE 80 MG80 MG PO
[2019-09-09 01:50] LABS: BASOPHILS 0.3 % (0-2); EOSINOPHILS 4.1 % (0-7); HEMATOCRIT 41.5 % (36.0-48.0); HEMOGLOBIN 13.4 g/dL (12-16); IMMATURE GRANULOCYTES 0.2 % (0-5); LYMPHOCYTES 28.3 % (15-50); MCH 31.3 pg (26.0-34.0); MCHC 32.3 g/dL (31.0-37.0); MEAN PLATELET VOLUME 10.8 fL (7.4-10.4); NEUTROPHILS 59.1 % (40-80); PLATELET COUNT 167 10x3/uL (130-400); RBC 4.28 10x6/uL (4.00-5.40); RDW 13.5 % (11.5-14.5); WBC 6.5 10x3/uL (4.8-10.8)
[2019-09-09 01:55] LABS: APTT 33.5 SECONDS (22.8-39.4); CALC OSMOLALITY 281 mosm/kg (275-300); CALCIUM 8.5 mg/dL (8.5-10.1); CARBON DIOXIDE 30.2 mmol/L (21.0-32.0); CHLORIDE - SERUM 103 mmol/L (98-107); CREATININE - SERUM 1.1 mg/dL (0.6-1.3); GLUCOSE 128 mg/dL (74-106); INR 1.05 (0.85-1.17); POTASSIUM - SERUM 3.6 mmol/L (3.5-5.1); PROTIME 13.6 SECONDS (11.6-15.0); SODIUM 140 mmol/L (136-145); UREA NITROGEN 16 mg/dL (7-18); eGFR NON AFRICAN AMERICAN 51 mL/min (90-120)
[2019-09-09 02:01] VITALS: BP 122/59
[2019-09-09 02:11] LABS: ALBUMIN 3.6 g/dL (3.4-5.0); ALKALINE PHOSPHATASE 89 U/L (30-120); ALT (SGPT) 19 U/L (10-68); BILIRUBIN - TOTAL 0.37 mg/dL (0.2-1.3); CKMB 1.1 U/L (0.0-3.6); CREATINE KINASE 101 UL (21-215); PROTEIN - SERUM 7.1 g/dL (6.4-8.2); TROPONIN-I < 0.017 ng/mL (0.000-0.060)
[2019-09-09] MEDS ORDERED: TESSALON PERLE100 MG PO ×2 (03:19→03:58)
[2019-09-09] MEDS ORDERED: REQUIP0.25 MG PO (03:19)
[2019-09-09] MEDS ORDERED: SINGULAIR 4 MG P4 MG PO (03:20)
[2019-09-09] MEDS ORDERED: PAMELOR10 MG PO (03:58)
[2019-09-09] MEDS ORDERED: REQUIP3 MG PO (03:58)
[2019-09-09] MEDS ORDERED: BETAPACE 80 MG80 MG PO (03:58)
[2019-09-09] MEDS ORDERED: CARDURA8 MG PO (03:59)
[2019-09-09] MEDS ORDERED: NORVASC5 MG PO (03:59)
[2019-09-09 04:38] VITALS: BMI 33.5
--- NOTE | 2019-09-09 07:16 | NUR ---
ALERT AND ORIENTED. TELEMERTY SHOWS ATRIAL FIB 92. LEFT HANDIV WITH CARDIZEM DRIP AT 5. O2 AT 2 L/M PER NC. . DENIES ANY NEEDS. WILL MONITOR
[2019-09-09 07:26] VITALS: Ht 170.2 cm; Wt 97.0 kg
[2019-09-09 09:08] VITALS: BP 145/78
[2019-09-09 10:05] LABS: CKMB 1.2 U/L (0.0-3.6); CREATINE KINASE 81 UL (21-215)
[2019-09-09 10:07] LABS: TROPONIN-I < 0.017 ng/mL (0.000-0.060)
--- NOTE | 2019-09-09 11:57 | NUR ---
LYING QUIETLY. DENIES ANY NEEDS. TELEMERTY SHOWS AFIB 80. WILL MONITOR
[2019-09-09 12:51] VITALS: BP 111/42
[2019-09-09 16:40] VITALS: BP 122/53
--- NOTE | 2019-09-09 17:22 | NUR ---
I have reviewed this patient and I concur with the Shift Assessment completed by the Licensed Practical Nurse today this shift.
[2019-09-09 17:58] LABS: CREATINE KINASE 76 UL (21-215); TROPONIN-I < 0.017 ng/mL (0.000-0.060)
[2019-09-09 20:30] VITALS: BP 122/62
[2019-09-09 23:06] LABS: CKMB 0.8 U/L (0.0-3.6); CREATINE KINASE 65 UL (21-215); TROPONIN-I < 0.017 ng/mL (0.000-0.060)
[2019-09-10 00:45] VITALS: BP 124/52
[2019-09-10 04:48] VITALS: BP 131/62
[2019-09-10 06:13] LABS: BASOPHILS 0.3 % (0-2); EOSINOPHILS 4.6 % (0-7); HEMATOCRIT 40.8 % (36.0-48.0); HEMOGLOBIN 13.1 g/dL (12-16); IMMATURE GRANULOCYTES 0.2 % (0-5); LYMPHOCYTES 33.5 % (15-50); MCHC 32.1 g/dL (31.0-37.0); MCV 96.7 fL (80.0-100.0); MEAN PLATELET VOLUME 11.1 fL (7.4-10.4); MONOCYTES 8.8 % (2-11); NEUTROPHILS 52.6 % (40-80); PLATELET COUNT 168 10x3/uL (130-400); RBC 4.22 10x6/uL (4.00-5.40); RDW 13.5 % (11.5-14.5); WBC 6.4 10x3/uL (4.8-10.8)
[2019-09-10 06:35] LABS: ALBUMIN 3.1 g/dL (3.4-5.0); ANION GAP 11.1 mmol/L (8-16); BILIRUBIN - TOTAL 0.37 mg/dL (0.2-1.3); CALCIUM 8.4 mg/dL (8.5-10.1); CARBON DIOXIDE 28.2 mmol/L (21.0-32.0); POTASSIUM - SERUM 3.3 mmol/L (3.5-5.1); PROTEIN - SERUM 6.4 g/dL (6.4-8.2)
--- NOTE | 2019-09-10 07:28 | NUR ---
ALERT AND ORIENTED. DENIES ANY NEEDS. TELEMERTY SHOWS CAF AT 79. O2 AT 2 L/M PER NC. IV TO LEFT HAND WITH CARDIZEM AT 5. NPO FOR CARDIOVERSION LATER TODAY
[2019-09-10 09:18] VITALS: BP 121/56
[2019-09-10 13:18] VITALS: BP 109/59
--- NOTE | 2019-09-10 13:55 | NUR ---
BACK FROM CATH POST CARDIOVERSION. AWAKE AND ALERT TELEMERTY SHOWS SR. WILL MONITOR
--- NOTE | 2019-09-10 14:34 | MORECARE ---
CASE MANAGEMENT DISCHARGE SUMMARY PATIENT: AVEL ARTEAGA UNIT: [id number] ADM DATE: 09/09/19 AGE: 79 : 42 SEX: F ROOM/BED: D.3194 AUTHOR: INA DEMARCO PHYSICIAN: REFERRING PHYSICIAN: MIKAEL REED MD DATE OF SERVICE: 09/10/19 Discharge Plan Patient Name: AVEL ARTEAGA Facility: [facility]:[place] : 1940 Planned Disposition: Home Anticipated Discharge Date: Discharge Date: Expected LOS: Initial Reviewer: [email or web address] Initial Review Date: 09/09/2019 Generated: 09/10/19 3:34 pm Comments DCP- Discharge Planning Updated by [email or web address]: Mary Be on 09/10/19 1:[address] Patient Name: AVEL ARTEAGA Admission Status: ER Accout number: [id number] Admission Date: 09-09-2019 : 1940 Admission Diagnosis: Attending: MIKAEL REED Current LOS: 1 Anticipated DC Date: Planned Disposition: Home Primary Insurance: MEDICARE A & B Discharge Planning Comments: CM MET WITH PATIENT AND HER AFTER OBTAINING VERBAL CONSENT. PATIENT STATES HAD CARDIOVERSION TODAY AND PLANS TO DISCHARGE TO HOME. STATES NO NEEDS, IS AT THE BEDSIDE. CM TO FOLLOW AND ASSIST. Scanning Supervisor: Mary Be DCPIA - Discharge Planning Initial Assessment Updated by [email or web address]: Mary Be on 09/10/19 2:28 pm * Is the patient Alert and Oriented? Yes * PCP BRIANNA * Pharmacy [facility] * Preadmission Environment Home with Family * ADLs Independent * Equipment CPAP * Community resources currently utilized None * Additional services required to return to the preadmission environment? No * Can the patient safely return to the preadmission environment? Yes * Has this patient been hospitalized within the prior 30 days at any hospital? No Patient Name: AVEL ARTEAGA Page 91297 at 1434 All edits/amendments must be made on the electronic document DICTATION DATE: 09/10/19 1434 CHILDREN'S SERVICE WORKER: ROCIO 09/10/19 1434 RPT#: [id number] DC DATE: STATUS: ADM IN [facility] [address] [place] [place] [address] END OF REPORT
--- NOTE | 2019-09-10 16:40 | MORECARE ---
CASE MANAGEMENT DISCHARGE SUMMARY PATIENT: AVEL ARTEAGA UNIT: [id number] ADM DATE: 09/09/19 AGE: 79 : 42 SEX: F ROOM/BED: D.4014 AUTHOR: INA DEMARCO PHYSICIAN: REFERRING PHYSICIAN: MIKAEL REED MD DATE OF SERVICE: 09/10/19 Discharge Plan Patient Name: AVEL ARTEAGA Facility: [facility]:[place] : 1940 Planned Disposition: Home Anticipated Discharge Date: 09/10/19 Discharge Date: Expected LOS: 1 Initial Reviewer: [email or web address] Initial Review Date: 09/09/2019 Generated: 09/10/19 5:39 pm Comments DCP- Discharge Planning Updated by [email or web address]: Mary Be on 09/10/19 1:[address] Patient Name: AVEL ARTEAGA Admission Status: ER Accout number: [id number] Admission Date: 09-09-2019 : 1940 Admission Diagnosis: Attending: MIKAEL REED Current LOS: 1 Anticipated DC Date: Planned Disposition: Home Primary Insurance: MEDICARE A & B Discharge Planning Comments: CM MET WITH PATIENT AND HER AFTER OBTAINING VERBAL CONSENT. PATIENT STATES HAD CARDIOVERSION TODAY AND PLANS TO DISCHARGE TO HOME. STATES NO NEEDS, IS AT THE BEDSIDE. CM TO FOLLOW AND ASSIST. Nc Manager: Mary Be DCPIA - Discharge Planning Initial Assessment Updated by [email or web address]: Mary Be on 09/10/19 2:28 pm * Is the patient Alert and Oriented? Yes * PCP BRIANNA * Pharmacy [facility] * Preadmission Environment Home with Family * ADLs Independent * Equipment CPAP * Community resources currently utilized None * Additional services required to return to the preadmission environment? No * Can the patient safely return to the preadmission environment? Yes * Has this patient been hospitalized within the prior 30 days at any hospital? No Last DP export: 09/10/19 1:34 p Patient Name: AVEL ARTEAGA Page 46805 at 1640 All edits/amendments must be made on the electronic document DICTATION DATE: 09/10/19 1639 SALESFORCE CONSULTANT: DM 09/10/19 1639 RPT#: [id number] DC DATE: STATUS: ADM IN [facility] [address] [place] [address] END OF REPORT
[2019-09-10 17:12] VITALS: BP 134/63
== END 2019-09-10 19:50 | disposition home or self-care (01) | DRG 310 ==
LOC: D.ER 01:16 → D.M2 02:06 → D.SDCHOLD 15:06 → D.M2 15:06
PROVIDERS: Family Medicine; ADMIT Family Medicine; ATTEND Family Medicine
DX: I48.20 Chronic atrial fibrillation, unspecified (principal); I10 Essential (primary) hypertension; K21.9 Gastro-esophageal reflux disease without esophagitis; I25.10 Atherosclerotic heart disease of native coronary artery without angina pectoris

== ENCOUNTER 2019-12-07 09:06 | Inpatient (IN) | payer MEDICARE, BC ==
[~2019-12-07] VITALS: Ht 170.2 cm; Wt 95.3 kg
[2019-12-07] VITALS (7 sets, daily range): BP systolic 109–182; BP diastolic 54–84; BMI 32.9
[~2019-12-07 09:06] MED LIST changes: +REQUIP0.25 MG PO; +REQUIP3 MG PO; +SINGULAIR 4 MG P4 MG PO; +TESSALON PERLE100 MG PO
[2019-12-07 09:35] LABS: BASOPHILS 0.4 % (0-2); EOSINOPHILS 4.7 % (0-7); HEMATOCRIT 42.2 % (36.0-48.0); HEMOGLOBIN 13.6 g/dL (12-16); IMMATURE GRANULOCYTES 0.2 % (0-5); LYMPHOCYTES 24.6 % (15-50); MCH 31.1 pg (26.0-34.0); MCHC 32.2 g/dL (31.0-37.0); MCV 96.6 fL (80.0-100.0); MEAN PLATELET VOLUME 12.2 fL (7.4-10.4); MONOCYTES 8.9 % (2-11); NEUTROPHILS 61.2 % (40-80); PLATELET COUNT 148 10x3/uL (130-400); RBC 4.37 10x6/uL (4.00-5.40); RDW 13.8 % (11.5-14.5); WBC 4.5 10x3/uL (4.8-10.8)
[2019-12-07 09:51] LABS: APTT 34.4 SECONDS (22.8-39.4); INR 1.05 (0.85-1.17); PROTIME 13.7 SECONDS (11.6-15.0)
[2019-12-07 10:07] LABS: CALC OSMOLALITY 277 mosm/kg (275-300); CALCIUM 8.5 mg/dL (8.5-10.1); CARBON DIOXIDE 29.7 mmol/L (21.0-32.0); CHLORIDE - SERUM 103 mmol/L (98-107); CREATININE - SERUM 0.9 mg/dL (0.6-1.3); GLUCOSE 114 mg/dL (74-106); POTASSIUM - SERUM 3.4 mmol/L (3.5-5.1); SODIUM 139 mmol/L (136-145); UREA NITROGEN 11 mg/dL (7-18); eGFR NON AFRICAN AMERICAN 64 mL/min (90-120)
[2019-12-07 10:22] LABS: ALBUMIN 3.4 g/dL (3.4-5.0); ALKALINE PHOSPHATASE 88 U/L (30-120); ALT (SGPT) 20 U/L (10-68); BILIRUBIN - TOTAL 0.39 mg/dL (0.2-1.3); CKMB 0.9 U/L (0.0-3.6); CREATINE KINASE 75 UL (21-215); MAGNESIUM - SERUM 1.9 mg/dL (1.8-2.4); PRO BNP 451 pg/mL (0-450); PROTEIN - SERUM 6.4 g/dL (6.4-8.2); TROPONIN-I 0.018 ng/mL (0.000-0.060)
--- NOTE | 2019-12-07 11:32 | NUR ---
PT ARRIVED ON UNIT VIA STRETCHER, HOOKED TO MONITORS, PT IS ALERT AND ORIENTED, ON RA WITH 97% O2 SAT. ALL PPP, VSS, CALL LIGHT IN REACH
[2019-12-07 11:37] LABS: CREATINE KINASE 78 UL (21-215); TROPONIN-I < 0.017 ng/mL (0.000-0.060)
--- NOTE | 2019-12-07 13:00 | NUR ---
PT UPTO BSC, 150 UOP AT THIS TIME,
--- NOTE | 2019-12-07 15:00 | NUR ---
PT UPTO BSC, 150 UOP NOTED
--- NOTE | 2019-12-07 17:12 | NUR ---
PT RESTING AT THIS TIME, DENIES ANY WANTS OR NEEDS
[2019-12-07 18:03] LABS: CKMB 0.9 U/L (0.0-3.6); CREATINE KINASE 70 UL (21-215); TROPONIN-I 0.024 ng/mL (0.000-0.060)
[2019-12-07 22:33] LABS: CKMB 1.1 U/L (0.0-3.6); CREATINE KINASE 60 UL (21-215)
--- NOTE | 2019-12-08 00:58 | NUR ---
UP TO BEDSIDE COMMODE WITH NO DIFFICULTY. VSS, DENIES PAIN. CALL LIGHT WITHIN PT REACH. CPOC.
[2019-12-08 03:00] VITALS: BP 162/65
--- NOTE | 2019-12-08 03:20 | NUR ---
NO CHANGES AT THIS TIME. PT WATCHING TV QUIETLY WITH VSS, DENIES PAIN. DENIES NEEDS AT THIS TIME. CALL LIGHT AND BEDSIDE TABLE WITHIN PT REACH. CPOC.
[2019-12-08 04:06] LABS: BASOPHILS 0.6 % (0-2); EOSINOPHILS 4.2 % (0-7); HEMATOCRIT 38.8 % (36.0-48.0); HEMOGLOBIN 12.1 g/dL (12-16); IMMATURE GRANULOCYTES 0.4 % (0-5); LYMPHOCYTES 30.9 % (15-50); MCH 30.5 pg (26.0-34.0); MCHC 31.2 g/dL (31.0-37.0); MCV 97.7 fL (80.0-100.0); MEAN PLATELET VOLUME 11.5 fL (7.4-10.4); MONOCYTES 11.2 % (2-11); NEUTROPHILS 52.7 % (40-80); PLATELET COUNT 144 10x3/uL (130-400); RBC 3.97 10x6/uL (4.00-5.40); RDW 13.7 % (11.5-14.5); WBC 5.3 10x3/uL (4.8-10.8)
[2019-12-08 04:40] LABS: ALBUMIN 3.1 g/dL (3.4-5.0); ALKALINE PHOSPHATASE 75 U/L (30-120); ALT (SGPT) 18 U/L (10-68); BILIRUBIN - TOTAL 0.48 mg/dL (0.2-1.3); CALC OSMOLALITY 274 mosm/kg (275-300); CALCIUM 8.3 mg/dL (8.5-10.1); CARBON DIOXIDE 29.5 mmol/L (21.0-32.0); CHLORIDE - SERUM 105 mmol/L (98-107); CREATININE - SERUM 0.7 mg/dL (0.6-1.3); GLUCOSE 92 mg/dL (74-106); MAGNESIUM - SERUM 1.8 mg/dL (1.8-2.4); POTASSIUM - SERUM 3.6 mmol/L (3.5-5.1); PROTEIN - SERUM 6.2 g/dL (6.4-8.2); SODIUM 138 mmol/L (136-145); UREA NITROGEN 9 mg/dL (7-18); eGFR NON AFRICAN AMERICAN 86 mL/min (90-120)
--- NOTE | 2019-12-08 05:00 | NUR ---
FRESH WATER PROVIDED, PT REPOSITIONS SELF INDEPENDENTLY. VSS, DENIES PAIN AT THIS TIME. CALL LIGHT AND BEDSIDE TABLE WITHIN PT REACH. CPOC.
[2019-12-08 07:00] VITALS: BP 164/71
--- NOTE | 2019-12-08 07:07 | NUR ---
REPORT RECIEVED, SHIFT ASSESSMENT COMPLETE, PT IS ALERT AND ORIENTED, ON RA WITH 97% O2 SAT. ALL PPP, VSS, CALL LIGHT IN REACH
[2019-12-08 10:12] VITALS: Ht 170.2 cm; Wt 95.3 kg
--- NOTE | 2019-12-08 10:35 | NUR ---
PT TO MRI AT THIS TIME VIA WHEELCHAIR
[2019-12-08 11:00] VITALS: BP 174/71
--- NOTE | 2019-12-08 11:06 | NUR ---
PT BACK FROM ER AT THIS TIME, TOLERATED WELL
[2019-12-08 15:56] VITALS: BP 183/50
--- NOTE | 2019-12-08 18:20 | NUR ---
WITHOUT CHANGES OR DISTRESS NOTED AT THIS TIME. DENIES NEEDS
[2019-12-08 20:00] VITALS: BP 179/66
[2019-12-09] VITALS: BP 150/54
--- NOTE | 2019-12-09 02:24 | NUR ---
I have reviewed this patient and I concur with the Shift Assessment completed by the Licensed Practical Nurse today this shift.
[2019-12-09 04:00] VITALS: BP 144/68
--- NOTE | 2019-12-09 08:00 | NUR ---
UP AMBULATING HALLWAY. GAIT STEADY.
[2019-12-09] MEDS ORDERED: LEVOTHYROXINE100 MCG PO (08:11)
[2019-12-09] MEDS ORDERED: DILTIAZEM 24HR120 M3 PO (08:12)
--- NOTE | 2019-12-09 09:54 | MORECARE ---
CASE MANAGEMENT DISCHARGE SUMMARY PATIENT: AVEL ARTEAGA UNIT: [id number] ADM DATE: 12/07/19 AGE: 79 : 42 SEX: F ROOM/BED: D.2119 AUTHOR: INA DEMARCO PHYSICIAN: REFERRING PHYSICIAN: MIKAEL REED MD DATE OF SERVICE: 12/09/19 Discharge Plan Patient Name: AVEL ARTEAGA Facility: [facility]:[place] : 1940 Planned Disposition: Home or Self Care Anticipated Discharge Date: 12/09/19 Discharge Date: Expected LOS: 2 Initial Reviewer: [email or web address] Initial Review Date: 12/09/2019 Generated: 12/09/19 10:53 am Patient Name: AVEL ARTEAGA Page 17890 at 0954 All edits/amendments must be made on the electronic document DICTATION DATE: 12/09/19953 LIQUID FLAVOR COMPOUNDER: ROCIO 12/09/19953 RPT#: [id number] DC DATE: STATUS: ADM IN [facility] [address] [place] [address] END OF REPORT
--- NOTE | 2019-12-09 10:00 | MORECARE ---
CASE MANAGEMENT DISCHARGE SUMMARY PATIENT: AVEL ARTEAGA UNIT: [id number] ADM DATE: 12/07/19 AGE: 79 : 42 SEX: F ROOM/BED: D.3966 AUTHOR: INA DEMARCO PHYSICIAN: REFERRING PHYSICIAN: MIKAEL REED MD DATE OF SERVICE: 12/09/19 Discharge Plan Patient Name: AVEL ARTEAGA Facility: [facility]:[place] : 1940 Planned Disposition: Home or Self Care Anticipated Discharge Date: 12/09/19 Discharge Date: Expected LOS: 2 Initial Reviewer: [email or web address] Initial Review Date: 12/09/2019 Generated: 12/09/19 11:00 am Comments DCP- Discharge Planning Updated by [email or web address]: Rosario Shields on 12/09/19 8:[address] Patient Name: AVEL ARTEAGA Admission Status: ER Accout number: [id number] Admission Date: 12-07-2019 : 1940 Admission Diagnosis: Attending: MIKAEL REED Current LOS: 2 Anticipated DC Date: 12-09-2019 Planned Disposition: Home or Self Care Primary Insurance: MEDICARE A & B Discharge Planning Comments: CM met with patient to complete initial dc planning assessment. CM educated patient on the CM role and verbal consent given by patient to complete assessment. Patient lives independently at home with her spouse. At discharge patient plans to return and feels this is a safe discharge. CM discussed availability of home health, rehab services, and medical equipment. Patient denied known discharge needs at this time. CM will continue to follow and will assist as needed with dc plans/needs. Commercial Service Technician: Rosario Shields DCPIA - Discharge Planning Initial Assessment Updated by [email or web address]: Rosario Shields on 12/09/19 9:54 am * Is the patient Alert and Oriented? Yes * How many steps to enter\exit or inside your home? 0/0 * PCP Dr. Reed * Pharmacy [facility] * Preadmission Environment Home with Family * ADLs Independent * Equipment CPAP * Other Equipment [employer] is DME for CPAP * List name and contact numbers for known caregivers / representatives who currently or will assist patient after discharge: [facility] - [phone] * Verbal permission to speak to the caregivers and representatives has been obtained from the patient. Yes * Community resources currently utilized None * Additional services required to return to the preadmission environment? No * Can the patient safely return to the preadmission environment? Yes * Has this patient been hospitalized within the prior 30 days at any hospital? No Last DP export: 12/09/19 8:54 a Patient Name: AVEL ARTEAGA Page 27635 at 1000 All edits/amendments must be made on the electronic document DICTATION DATE: 12/09/19 1000 PROGRAM MGR: ROCIO 12/09/19 1000 RPT#: [id number] DC DATE: STATUS: ADM IN [facility] [address] [place] [address] END OF REPORT
--- NOTE | 2019-12-09 10:16 | NUR ---
IV AND TELEMETRY DCD. DC PLANS GIVEN. UNDERSTANDING VOICED. WAITING FOR TO PICK HER UP.
--- NOTE | 2019-12-09 10:53 | NUR ---
ESCORTED TO CAR BY W/C.
--- NOTE | 2019-12-12 19:05 | MORECARE ---
CASE MANAGEMENT DISCHARGE SUMMARY PATIENT: AVEL ARTEAGA UNIT: [id number] ADM DATE: 12/07/19 AGE: 79 : 42 SEX: F ROOM/BED: D.7058 AUTHOR: INA DEMARCO PHYSICIAN: REFERRING PHYSICIAN: MIKAEL REED MD DATE OF SERVICE: 12/12/19 Discharge Plan Patient Name: AVEL ARTEAGA Facility: [facility]:[place] : 1940 Planned Disposition: Home or Self Care Anticipated Discharge Date: 12/09/19 Discharge Date: 12/09/2019 Expected LOS: 2 Initial Reviewer: [email or web address] Initial Review Date: 12/09/2019 Generated: 12/12/19 8:05 pm Comments DCP- Discharge Planning Updated by [email or web address]: Rosario Shields on 12/09/19 8:[address] Patient Name: AVEL ARTEAGA Admission Status: ER Accout number: [id number] Admission Date: 12-07-2019 : 1940 Admission Diagnosis: Attending: MIKAEL REED Current LOS: 2 Anticipated DC Date: 12-09-2019 Planned Disposition: Home or Self Care Primary Insurance: MEDICARE A & B Discharge Planning Comments: CM met with patient to complete initial dc planning assessment. CM educated patient on the CM role and verbal consent given by patient to complete assessment. Patient lives independently at home with her spouse. At discharge patient plans to return and feels this is a safe discharge. CM discussed availability of home health, rehab services, and medical equipment. Patient denied known discharge needs at this time. CM will continue to follow and will assist as needed with dc plans/needs. Certified Personal Trainer: Rosario Shields DCPIA - Discharge Planning Initial Assessment Updated by [email or web address]: Rosario Shields on 12/09/19 9:54 am * Is the patient Alert and Oriented? Yes * How many steps to enter\exit or inside your home? 0/0 * PCP Dr. Reed * Pharmacy [facility] * Preadmission Environment Home with Family * ADLs Independent * Equipment CPAP * Other Equipment [employer] is DME for CPAP * List name and contact numbers for known caregivers / representatives who currently or will assist patient after discharge: [facility] - [phone] * Verbal permission to speak to the caregivers and representatives has been obtained from the patient. Yes * Community resources currently utilized None * Additional services required to return to the preadmission environment? No * Can the patient safely return to the preadmission environment? Yes * Has this patient been hospitalized within the prior 30 days at any hospital? No Last DP export: 12/09/19 9:00 a Patient Name: AVEL ARTEAGA Page 23690 at 1905 All edits/amendments must be made on the electronic document DICTATION DATE: 12/12/191904 TESTING CONSULTANT: ROCIO 12/12/191904 RPT#: [id number] DC DATE:12/09/19 STATUS: DIS IN [facility] [address] [place] [address] END OF REPORT
== END 2019-12-09 10:54 | disposition home or self-care (01) | DRG 310 ==
LOC: D.ER 09:06 → D.ICU 10:33 → D.M2 10:33
PROVIDERS: Family Medicine; ADMIT Family Medicine; ATTEND Family Medicine
DX: I48.20 Chronic atrial fibrillation, unspecified (principal); F06.8 Other specified mental disorders due to known physiological condition; I10 Essential (primary) hypertension

== ENCOUNTER 2019-12-26 09:49 | Emergency (ER) | payer MEDICARE, BC ==
[~2019-12-26] VITALS: Ht 170.2 cm; Wt 97.7 kg
[~2019-12-26 09:49] MED LIST changes: +DILTIAZEM 24HR120 M3 PO; +LEVOTHYROXINE100 MCG PO
[2019-12-26 09:55] VITALS: Ht 170.2 cm; Wt 97.7 kg
[2019-12-26 10:16] LABS: BASOPHILS 0.7 % (0-2); EOSINOPHILS 5.8 % (0-7); HEMATOCRIT 36.9 % (36.0-48.0); HEMOGLOBIN 11.5 g/dL (12-16); IMMATURE GRANULOCYTES 0.3 % (0-5); MCH 30.7 pg (26.0-34.0); MCHC 31.2 g/dL (31.0-37.0); MCV 98.4 fL (80.0-100.0); MEAN PLATELET VOLUME 11.4 fL (7.4-10.4); NEUTROPHILS 59.2 % (40-80); PLATELET COUNT 136 10x3/uL (130-400); RBC 3.75 10x6/uL (4.00-5.40); RDW 14.3 % (11.5-14.5); WBC 5.8 10x3/uL (4.8-10.8)
[2019-12-26 10:21] LABS: CALC OSMOLALITY 276 mosm/kg (275-300); CALCIUM 8.4 mg/dL (8.5-10.1); CARBON DIOXIDE 30.5 mmol/L (21.0-32.0); CHLORIDE - SERUM 104 mmol/L (98-107); CREATININE - SERUM 1.1 mg/dL (0.6-1.3); GLUCOSE 99 mg/dL (74-106); POTASSIUM - SERUM 3.7 mmol/L (3.5-5.1); SODIUM 139 mmol/L (136-145); UREA NITROGEN 10 mg/dL (7-18); eGFR NON AFRICAN AMERICAN 51 mL/min (90-120)
[2019-12-26 10:30] LABS: APTT 37.1 SECONDS (22.8-39.4); INR 1.21 (0.85-1.17); PROTIME 15.3 SECONDS (11.6-15.0)
[2019-12-26 10:31] LABS: D-DIMER-QUANTITATIVE 0.62 ug/mLFEU (0.20-0.54)
[2019-12-26 10:39] LABS: ALBUMIN 3.5 g/dL (3.4-5.0); ALKALINE PHOSPHATASE 83 U/L (30-120); ALT (SGPT) 18 U/L (10-68); BILIRUBIN - TOTAL 0.72 mg/dL (0.2-1.3); CKMB 0.5 U/L (0.0-3.6); CREATINE KINASE 51 UL (21-215); PRO BNP 527 pg/mL (0-450); PROTEIN - SERUM 6.7 g/dL (6.4-8.2); TROPONIN-I 0.017 ng/mL (0.000-0.060)
[2019-12-26 11:22] LABS: BILIRUBIN NEGATIVE (NEGATIVE); GLUCOSE NEGATIVE (NEGATIVE); KETONE NEGATIVE (NEGATIVE); NITRITE NEGATIVE (NEGATIVE); SPECIFIC GRAVITY 1.005 (1.005-1.020); UROBILINOGEN NORMAL (NORMAL)
[2019-12-26] MEDS ORDERED: CATAPRES0.1 MG PO (13:11)
[2019-12-26 13:44] VITALS: BP 140/60
== END 2019-12-26 13:44 | disposition home or self-care (01) ==
LOC: D.ER 09:49
PROVIDERS: Family Medicine
DX: I10 Essential (primary) hypertension (principal); R06.00 Dyspnea, unspecified; I48.91 Unspecified atrial fibrillation; E07.9 Disorder of thyroid, unspecified; R07.89 Other chest pain

== ENCOUNTER 2019-12-27 22:54 | Inpatient (IN) | payer MEDICARE, BC ==
[~2019-12-27] VITALS: Ht 152.4 cm; Wt 97.3 kg
[2019-12-27 23:30] LABS: HEMATOCRIT 37.8 % (36.0-48.0); HEMOGLOBIN 12.1 g/dL (12-16); LYMPHOCYTES 22.3 % (15-50); MCH 31.2 pg (26.0-34.0); MCV 97.4 fL (80.0-100.0); MEAN PLATELET VOLUME 11.2 fL (7.4-10.4); NEUTROPHILS 64.6 % (40-80); PLATELET COUNT 124 10x3/uL (130-400); RBC 3.88 10x6/uL (4.00-5.40); RDW 13.9 % (11.5-14.5); WBC 7.1 10x3/uL (4.8-10.8)
[2019-12-27 23:47] LABS: INR 1.19 (0.85-1.17)
[2019-12-27 23:48] LABS: APTT 37.1 SECONDS (22.8-39.4)
[2019-12-27 23:59] LABS: CALC OSMOLALITY 277 mosm/kg (275-300); CALCIUM 8.6 mg/dL (8.5-10.1); CARBON DIOXIDE 30.1 mmol/L (21.0-32.0); CHLORIDE - SERUM 104 mmol/L (98-107); CREATININE - SERUM 0.9 mg/dL (0.6-1.3); GLUCOSE 108 mg/dL (74-106); POTASSIUM - SERUM 3.9 mmol/L (3.5-5.1); SODIUM 138 mmol/L (136-145); eGFR NON AFRICAN AMERICAN 64 mL/min (90-120)
[2019-12-28] VITALS (8 sets, daily range): BP systolic 141–187; BP diastolic 42–67; Ht 152.4 cm; Wt 97.3 kg
[2019-12-28] LABS: UREA NITROGEN 14 mg/dL (7-18)
[2019-12-28 00:31] LABS: ALBUMIN 3.7 g/dL (3.4-5.0); ALKALINE PHOSPHATASE 94 U/L (30-120); ALT (SGPT) 18 U/L (10-68); BILIRUBIN - TOTAL 0.61 mg/dL (0.2-1.3); CKMB 1.1 U/L (0.0-3.6); CREATINE KINASE 104 UL (21-215); PRO BNP 511 pg/mL (0-450); PROTEIN - SERUM 7.2 g/dL (6.4-8.2); TROPONIN-I < 0.017 ng/mL (0.000-0.060)
--- NOTE | 2019-12-28 02:40 | NUR ---
RECEIVED FROM ER, A&O, [id number], IV-R.HAND, HISTORY AND MEDS COMPLETE, BED IS LOW, SRX2, CALL LIGHT IN REACH, WILL CONTINUE PLAN OF CARE
--- NOTE | 2019-12-28 09:06 | NUR ---
ASSESSMENT DONE. DENIES NEEDS
--- NOTE | 2019-12-28 10:14 | NUR ---
I have reviewed this patient and I concur with the Shift Assessment completed by the Licensed Practical Nurse today this shift.
[2019-12-29 00:30] VITALS: BP 167/59
--- NOTE | 2019-12-29 03:46 | NUR ---
I have reviewed this patient and I concur with the Shift Assessment completed by the Licensed Practical Nurse today this shift.
[2019-12-29 04:39] VITALS: BP 173/65
--- NOTE | 2019-12-29 07:40 | NUR ---
ASSESSMENT DONE. DENIES NEEDS
[2019-12-29 07:59] VITALS: BP 170/55
--- NOTE | 2019-12-29 09:23 | NUR ---
I have reviewed this patient and I concur with the Shift Assessment completed by the Licensed Practical Nurse today this shift.
[2019-12-29 11:41] VITALS: BP 138/66
[2019-12-29 16:33] VITALS: BP 166/65
--- NOTE | 2019-12-29 18:26 | NUR ---
WITHOUT CHANGES OR DISTRESS NOTED AT THIS TIME. DENIES NEEDS
[2019-12-29 20:00] VITALS: BP 161/75
[2019-12-29] MEDS ORDERED: COZAAR50 MG PO (22:46)
[2019-12-29] MEDS ORDERED: NORMODYNE / TR200 MG PO (22:47)
[2019-12-30] VITALS: BP 149/66
[2019-12-30 04:00] VITALS: BP 128/59
--- NOTE | 2019-12-30 07:16 | NUR ---
AT SIDE. ASSESSMENT DONE. DENIES NEEDS
[2019-12-30] MEDS ORDERED: COZAAR50 MG PO (08:32)
[2019-12-30 09:25] VITALS: BP 154/65
--- NOTE | 2019-12-30 09:25 | NUR ---
I have reviewed this patient and I concur with the Shift Assessment completed by the Licensed Practical Nurse today this shift.
--- NOTE | 2019-12-30 10:29 | NUR ---
DC GIVEN TO PT
--- NOTE | 2019-12-30 11:31 | NUR ---
DC HOME PER PERSONAL CAR
--- NOTE | 2019-12-30 16:13 | MORECARE ---
CASE MANAGEMENT DISCHARGE SUMMARY PATIENT: AVEL ARTEAGA UNIT: [id number] ADM DATE: 12/29/19 AGE: 79 : 42 SEX: F ROOM/BED: D.3 AUTHOR: INA DEMARCO PHYSICIAN: REFERRING PHYSICIAN: ALYSSA GERBER MD DATE OF SERVICE: 12/30/19 Discharge Plan Patient Name: AVEL ARTEAGA [facility] : 1940 Planned Disposition: Home Anticipated Discharge Date: Discharge Date: 12/30/2019 Expected LOS: Initial Reviewer: [email or web address] Initial Review Date: 12/28/2019 Generated: 12/30/19 5:13 pm Coverage Notice Reviewer: [email or web address] Linsey Hensley Notice Issued Date-Time: 12/28/2019 12:00 Notice Type: Medicare Outpatient Observation Notice Notice Delivered To: Patient Relationship to Patient: Compressed Yeast Supervisor Name: Delivery Method: HAND - Hand Delivered Jodee Days: Prior Verbal Notification: Recipient Understood Notice: Yes Recipient Signature: Yes Med Rec Note Co-signed by Attending: Coverage Notice Comment: ACEVEDO SERVED, EXPLAINED, AND SIGNED BY PATIENT. THE ORIGINAL WAS PROVIDED TO THE PATIENT AND COPY PLACED ON CHART. Patient Name: AVEL ARTEAGA Page 79604 at 1613 All edits/amendments must be made on the electronic document DICTATION DATE: 12/30/19 1613 PARACHUTE MANUFACTURING SUPERVISOR: ROCIO 12/30/19 1613 RPT#: [id number] DC DATE:12/30/19 STATUS: DIS IN [facility] [address] [place] [address] END OF REPORT
--- NOTE | 2019-12-30 16:28 | MORECARE ---
CASE MANAGEMENT DISCHARGE SUMMARY PATIENT: AVEL ARTEAGA UNIT: [id number] ADM DATE: 12/29/19 AGE: 79 : 42 SEX: F ROOM/BED: D.3452 AUTHOR: INA DEMARCO PHYSICIAN: REFERRING PHYSICIAN: ALYSSA GERBER MD DATE OF SERVICE: 12/30/19 Discharge Plan Patient Name: AVEL ARTEAGA Facility: [facility]:[place] : 1940 Planned Disposition: Home Anticipated Discharge Date: Discharge Date: 12/30/2019 Expected LOS: Initial Reviewer: [email or web address] Initial Review Date: 12/28/2019 Generated: 12/30/19 5:27 pm Comments DCP- Discharge Planning Updated by [email or web address]: Ludivina Hensley on 12/30/19 3:[address] CM met with patient to complete initial dc planning assessment. CM educated patient on the CM role and verbal consent given by patient to complete assessment. CM verified patient's address, phone number, and emergency contact phone numbers. Patient lives at home with her . At discharge patient plans to return home and feels this is a safe discharge. CM discussed availability of home health, rehab services, and medical equipment. Patient denied known discharge needs at this time. Transportation provider at discharge will be her who is currently at bedside . Pt currently on 4 liters 02. States she has a home CPAP and is not on any oxygen at home. Respiratory therapist walked patient without oxygen. 02 saturations at 97% while ambulating on room air. Oxygen removed, and O2 saturations rechecked 30 minutes later. Oxygen never got below 97%. Patient declines need for HH services. Patient states the new medication has made her feel so much better, so she does not feel like she needed home health at this time. CM will continue to follow and will assist as needed with dc plans/needs. Ludivina FERNÁNDEZ,RN,CM Coverage Notice Reviewer: [id number] - Ludivina Hensley Notice Issued Date-Time: 12/28/2019 12:00 Notice Type: Medicare Outpatient Observation Notice Notice Delivered To: Patient Relationship to Patient: Shell Fisherman Name: Delivery Method: HAND - Hand Delivered Jodee Days: Prior Verbal Notification: Recipient Understood Notice: Yes Recipient Signature: Yes Med Rec Note Co-signed by Attending: Coverage Notice Comment: ACEVEDO SERVED, EXPLAINED, AND SIGNED BY PATIENT. THE ORIGINAL WAS PROVIDED TO THE PATIENT AND COPY PLACED ON CHART. Last DP export: 12/30/19 3:13 p Patient Name: AVEL ARTEAGA Page [id number] at 3078 All edits/amendments must be made on the electronic document DICTATION DATE: 12/30/191626 LINING CEMENTER: ROCIO 12/30/191626 RPT#: [id number] DC DATE:12/30/19 STATUS: DIS IN [facility] [address] [place] [address] END OF REPORT
== END 2019-12-30 11:31 | disposition home or self-care (01) | DRG 305 ==
LOC: D.ER 22:54 → D.M2 12-28 01:15 → OBSVTIME 12-28 01:15 → D.M2 12-29 09:26
PROVIDERS: Family Medicine; ADMIT Family Medicine; ATTEND Family Medicine
DX: I16.1 Hypertensive emergency (principal); I48.0 Paroxysmal atrial fibrillation; R41.3 Other amnesia

== ENCOUNTER 2020-01-31 10:40 | Emergency (ER) | payer MEDICARE, BC ==
[~2020-01-31] VITALS: Ht 152.4 cm; Wt 113.6 kg
[~2020-01-31 10:40] MED LIST changes: +COZAAR50 MG PO; +NORMODYNE / TR200 MG PO
[2020-01-31 10:53] VITALS: Ht 152.4 cm; Wt 113.6 kg
[2020-01-31 11:32] LABS: INR 1.19 (0.85-1.17)
[2020-01-31 11:34] LABS: HEMATOCRIT 40.7 % (36.0-48.0); HEMOGLOBIN 13.2 g/dL (12-16); LYMPHOCYTES 19.5 % (15-50); MCHC 32.4 g/dL (31.0-37.0); MCV 95.5 fL (80.0-100.0); NEUTROPHILS 67.1 % (40-80); RBC 4.26 10x6/uL (4.00-5.40); RDW 13.2 % (11.5-14.5); WBC 6.6 10x3/uL (4.8-10.8)
[2020-01-31 11:36] LABS: PLATELET COUNT 150 10x3/uL (130-400)
[2020-01-31 11:38] LABS: CALC OSMOLALITY 271 mosm/kg (275-300); CHLORIDE - SERUM 99 mmol/L (98-107); CREATININE - SERUM 1.1 mg/dL (0.6-1.3); GLUCOSE 101 mg/dL (74-106); POTASSIUM - SERUM 4.4 mmol/L (3.5-5.1); SODIUM 135 mmol/L (136-145); UREA NITROGEN 17 mg/dL (7-18); eGFR NON AFRICAN AMERICAN 51 mL/min (90-120)
[2020-01-31 11:56] LABS: ALBUMIN 3.7 g/dL (3.4-5.0); ALKALINE PHOSPHATASE 88 U/L (30-120); ALT (SGPT) 20 U/L (10-68); CKMB 1.7 U/L (0.0-3.6); CREATINE KINASE 133 UL (21-215); MAGNESIUM - SERUM 2.3 mg/dL (1.8-2.4); PROTEIN - SERUM 6.8 g/dL (6.4-8.2)
[2020-01-31] MEDS ORDERED: PROBIOTIC (12:10)
[2020-01-31] MEDS ORDERED: CARDURA4 MG PO (12:11)
[2020-01-31] MEDS ORDERED: VITAMIN D (12:11)
[2020-01-31] MEDS ORDERED: COZAAR100 MG PO (12:12)
[2020-01-31] MEDS ORDERED: NORMODYNE / TR200 MG PO (12:13)
[2020-01-31] MEDS ORDERED: ALDACTONE25 MG PO (12:15)
[2020-01-31 13:02] VITALS: BP 123/74
== END 2020-01-31 13:03 | disposition home or self-care (01) ==
LOC: D.ER 10:40
PROVIDERS: Family Medicine
DX: I48.20 Chronic atrial fibrillation, unspecified (principal); E03.9 Hypothyroidism, unspecified; K21.9 Gastro-esophageal reflux disease without esophagitis; R00.2 Palpitations

== ENCOUNTER → 2020-05-11 08:29 | Outpatient (CLI) | payer MEDICARE, BC ==
[2020-01-31 10:53] VITALS: BMI 48.9
[~2020-05-11 08:29] MED LIST changes: +ALDACTONE25 MG PO; +CARDURA4 MG PO; +COZAAR100 MG PO; +PROBIOTIC; +VITAMIN D
== END | disposition home or self-care (01) ==
LOC: D.MRI 08:29
PROVIDERS: ATTEND Family Medicine
DX: M54.5 Low back pain (principal)

== ENCOUNTER 2020-05-25 08:05 | Inpatient (IN) | payer MEDICARE, BC ==
[~2020-05-25] VITALS: Ht 170.2 cm; Wt 95.3 kg
[2020-05-25 08:34] LABS: BASOPHILS 0.2 % (0-2); EOSINOPHILS 1.7 % (0-7); HEMATOCRIT 34.8 % (36.0-48.0); HEMOGLOBIN 11.7 g/dL (12-16); LYMPHOCYTES 13.8 % (15-50); MCH 31.5 pg (26.0-34.0); MCHC 33.6 g/dL (31.0-37.0); MCV 93.8 fL (80.0-100.0); MEAN PLATELET VOLUME 9.1 fL (7.4-10.4); MONOCYTES 9.3 % (2-11); RBC 3.71 10x6/uL (4.00-5.40); RDW 14.1 % (11.5-14.5)
[2020-05-25 08:35] LABS: PLATELET COUNT 204 10x3/uL (130-400)
[2020-05-25] MEDS ORDERED: SYNTHROID112 MCG PO ×2 (08:42→09:09)
[2020-05-25] MEDS ORDERED: [UNRECOGNIZED DRUG - OTHER] (08:43)
[2020-05-25 08:48] LABS: APTT 37.7 SECONDS (22.8-39.4); INR 1.16 (0.85-1.17); PROTIME 14.8 SECONDS (11.6-15.0)
[2020-05-25 08:54] LABS: CALC OSMOLALITY 245 mosm/kg (275-300); CALCIUM 8.8 mg/dL (8.5-10.1); CHLORIDE - SERUM 87 mmol/L (98-107); CREATININE - SERUM 1.5 mg/dL (0.6-1.3); GLUCOSE 87 mg/dL (74-106); POTASSIUM - SERUM 5.2 mmol/L (3.5-5.1); SODIUM 121 mmol/L (136-145); UREA NITROGEN 21 mg/dL (7-18); eGFR NON AFRICAN AMERICAN 36 mL/min (90-120)
[2020-05-25 09:06] LABS: ALBUMIN 3.7 g/dL (3.4-5.0); ALKALINE PHOSPHATASE 79 U/L (30-120); ALT (SGPT) 29 U/L (10-68); BILIRUBIN - TOTAL 0.47 mg/dL (0.2-1.3); CKMB 2.9 U/L (0.0-3.6); CREATINE KINASE 172 UL (21-215); MAGNESIUM - SERUM 2.2 mg/dL (1.8-2.4); PROTEIN - SERUM 6.9 g/dL (6.4-8.2); TROPONIN-I 0.024 ng/mL (0.000-0.060)
[2020-05-25] MEDS ORDERED: [UNRECOGNIZED DRUG - OTHER] (09:09)
[2020-05-25] MEDS ORDERED: PACERONE100 MG PO (09:10)
[2020-05-25] MEDS ORDERED: ALDACTONE25 MG PO (09:11)
[2020-05-25] MEDS ORDERED: NORMODYNE / TR200 MG PO (09:12)
[2020-05-25] MEDS ORDERED: REQUIP3 MG PO (09:13)
[2020-05-25] MEDS ORDERED: BACTRIM 400-801 TAB (09:14)
[2020-05-25 09:18] VITALS: BP 135/43
--- NOTE | 2020-05-25 10:18 | NUR ---
PT GIVEN MACROBID PER HOME MED BY , THIS IS HER LAST DOSE. OK PER EDP DHRUV
--- NOTE | 2020-05-25 11:00 | NUR ---
PT C/O CHEST PAIN REPEAT EKG OBTAINED. PT REPORTS SHE DOES NOT WANT TO TAKE HER MORNING MEDS AT THIS TIME.
--- NOTE | 2020-05-25 11:00 | NUR ---
ADVISED EDP DHRUV OF PT C/O CHEST PAIN.
--- NOTE | 2020-05-25 11:20 | NUR ---
CALLED REPORT TO RICARDA AT THIS TIME.
[2020-05-25 12:58] VITALS: BP 146/66; BMI 32.9
[2020-05-25 14:19] VITALS: BP 146/66
[2020-05-25 16:44] VITALS: BP 149/40
[2020-05-25 20:00] VITALS: BP 133/56
[2020-05-25 22:17] LABS: BILIRUBIN NEGATIVE (NEGATIVE); KETONE NEGATIVE (NEGATIVE); NITRITE NEGATIVE (NEGATIVE); UROBILINOGEN NORMAL mg/dL (< 2)
[2020-05-26 04:00] VITALS: BP 139/46
[2020-05-26 06:29] LABS: BASOPHILS 0.3 % (0-2); HEMATOCRIT 33.6 % (36.0-48.0); HEMOGLOBIN 11.6 g/dL (12-16); IMMATURE GRANULOCYTES 1.6 % (0-5); LYMPHOCYTES 18.7 % (15-50); MCH 32.7 pg (26.0-34.0); MCHC 34.5 g/dL (31.0-37.0); MCV 94.6 fL (80.0-100.0); MEAN PLATELET VOLUME 9.4 fL (7.4-10.4); MONOCYTES 7.4 % (2-11); PLATELET COUNT 188 10x3/uL (130-400); RBC 3.55 10x6/uL (4.00-5.40); RDW 14.3 % (11.5-14.5); WBC 6.9 10x3/uL (4.8-10.8)
[2020-05-26 06:46] LABS: ANION GAP 13.1 mmol/L (8-16); CALCIUM 8.4 mg/dL (8.5-10.1); CARBON DIOXIDE 23.5 mmol/L (21.0-32.0); CREATININE - SERUM 1.5 mg/dL (0.6-1.3); POTASSIUM - SERUM 4.6 mmol/L (3.5-5.1)
[2020-05-26 10:41] VITALS: BP 135/93
[2020-05-26 13:34] VITALS: Ht 170.2 cm; Wt 95.3 kg
[2020-05-26 14:11] VITALS: BP 127/51
[2020-05-26 17:26] VITALS: BP 157/63
[2020-05-26 20:30] VITALS: BP 198/77
[2020-05-27 00:14] VITALS: BP 178/74
[2020-05-27 04:30] VITALS: BP 199/78
--- NOTE | 2020-05-27 05:59 | NUR ---
I have reviewed this patient and I concur with the Shift Assessment completed by the Licensed Practical Nurse today this shift.
[2020-05-27 07:06] LABS: ANION GAP 9.3 mmol/L (8-16); CALCIUM 8.1 mg/dL (8.5-10.1); CARBON DIOXIDE 27.4 mmol/L (21.0-32.0); POTASSIUM - SERUM 4.7 mmol/L (3.5-5.1)
[2020-05-27 07:07] LABS: BASOPHILS 0.6 % (0-2); CREATININE - SERUM 1.1 mg/dL (0.6-1.3); EOSINOPHILS 2.7 % (0-7); HEMATOCRIT 33.4 % (36.0-48.0); IMMATURE GRANULOCYTES 1.3 % (0-5); MCH 31.9 pg (26.0-34.0); MCHC 32.9 g/dL (31.0-37.0); MEAN PLATELET VOLUME 9.6 fL (7.4-10.4); MONOCYTES 10.7 % (2-11); NEUTROPHILS 64.7 % (40-80); PLATELET COUNT 199 10x3/uL (130-400); RBC 3.45 10x6/uL (4.00-5.40); RDW 14.4 % (11.5-14.5); WBC 6.4 10x3/uL (4.8-10.8)
[2020-05-27 07:23] LABS: MCV 96.8 fL (80.0-100.0)
[2020-05-27 08:00] VITALS: BP 128/59
--- NOTE | 2020-05-27 08:25 | NUR ---
RESTING IN BED, NO DISTRESS NOTED, CONT TO MONITOR
[2020-05-27 12:00] VITALS: BP 136/52
[2020-05-27 16:00] VITALS: BP 185/73
--- NOTE | 2020-05-27 19:30 | NUR ---
RECEIVED REPORT, DENIES NEEDS, BED LOWEST POSITION, CALL LIGHT IN REACH, IV PATENT, INFORMED PT TO NOTIFY STAFF IF THEY NEED ANYTHING
[2020-05-27 20:00] VITALS: BP 166/57
[2020-05-28] VITALS: BP 138/61
[2020-05-28 04:00] VITALS: BP 141/38
--- NOTE | 2020-05-28 07:52 | NUR ---
RESTING IN BED, NO DISTESS NOTED, HERE, PT ANXIOUS TO GO HOME TODAY, IV INFUSING
[2020-05-28 08:19] LABS: BASOPHILS 0.1 % (0-2); EOSINOPHILS 2.8 % (0-7); HEMOGLOBIN 10.3 g/dL (12-16); IMMATURE GRANULOCYTES 0.6 % (0-5); MCH 31.6 pg (26.0-34.0); MCHC 32.2 g/dL (31.0-37.0); MCV 98.2 fL (80.0-100.0); MEAN PLATELET VOLUME 9.1 fL (7.4-10.4); MONOCYTES 9.7 % (2-11); NEUTROPHILS 71.8 % (40-80); PLATELET COUNT 186 10x3/uL (130-400); RBC 3.26 10x6/uL (4.00-5.40); RDW 14.7 % (11.5-14.5); WBC 6.7 10x3/uL (4.8-10.8)
[2020-05-28 08:25] LABS: ANION GAP 8.1 mmol/L (8-16); CARBON DIOXIDE 27.2 mmol/L (21.0-32.0); POTASSIUM - SERUM 4.3 mmol/L (3.5-5.1)
[2020-05-28 09:30] VITALS: BP 134/47
[2020-05-28 13:00] VITALS: BP 132/70
--- NOTE | 2020-05-28 17:35 | MORECARE ---
CASE MANAGEMENT DISCHARGE SUMMARY PATIENT: AVEL PARHAM UNIT: [id number] ADM DATE: 05/26/20 AGE: 79 : 42 SEX: F ROOM/BED: D.2240 AUTHOR: INA DEMARCO PHYSICIAN: REFERRING PHYSICIAN: MIKAEL REED MD DATE OF SERVICE: 05/28/20 Discharge Plan Patient Name: AVEL PARHAM Facility: [facility]:[place] : 1940 Planned Disposition: Home Anticipated Discharge Date: 05/28/20 Discharge Date: Expected LOS: 2 Initial Reviewer: [email or web address] Initial Review Date: 05/25/2020 Generated: 05/28/20 6:34 pm DCPIA - Discharge Planning Initial Assessment Updated by [email or web address]: Jerad Rodriguez on 05/28/20 5:34 pm * Is the patient Alert and Oriented? Yes * How many steps to enter\exit or inside your home? 0/0 * PCP Dr. Reed * Pharmacy [facility] in [place] * Preadmission Environment Home with Family * ADLs Independent * Equipment None * Other Equipment n/a * List name and contact numbers for known caregivers / representatives who currently or will assist patient after discharge: Moisés Parham, spouse, * Verbal permission to speak to the caregivers and representatives has been obtained from the patient. Yes * Community resources currently utilized None * Please name any agencies selected above. none * Additional services required to return to the preadmission environment? Yes * Can the patient safely return to the preadmission environment? Yes * Has this patient been hospitalized within the prior 30 days at any hospital? No Patient Name: AVEL PARHAM Page [id number] at 1735 All edits/amendments must be made on the electronic document DICTATION DATE: 05/28/201734 MANAGING PARTNER: ROCIO 05/28/201734 RPT#: [id number] DC DATE: STATUS: ADM IN [facility] [address] [place] [address] END OF REPORT
--- NOTE | 2020-05-28 17:42 | MORECARE ---
CASE MANAGEMENT DISCHARGE SUMMARY PATIENT: AVEL PARHAM UNIT: [id number] ADM DATE: 05/26/20 AGE: 79 : 42 SEX: F ROOM/BED: D.2240 AUTHOR: INA DEMARCO PHYSICIAN: REFERRING PHYSICIAN: MIKAEL REED MD DATE OF SERVICE: 05/28/20 Discharge Plan Patient Name: AVEL PARHAM Facility: [facility]:[place] : 1940 Planned Disposition: Home Anticipated Discharge Date: 05/28/20 Discharge Date: Expected LOS: 2 Initial Reviewer: [email or web address] Initial Review Date: 05/25/2020 Generated: 05/28/20 6:41 pm Comments DCP- Discharge Planning Updated by [email or web address]: Jerad Rodriguez on 05/28/20 4:[address] Patient Name: AVEL PARHAM Admission Status: ER Accout number: [id number] Admission Date: 05-26-2020 : 1940 Admission Diagnosis:HYPO-OSMOLALITY AND HYPONATREMIA Attending: MIKAEL REED Current LOS: 2 Anticipated DC Date: 05-28-2020 Planned Disposition: Home Primary Insurance: MEDICARE A & B Discharge Planning Comments: CM met with patient for DC planning. Patient is in agreement with DC Plan. Patient lives at home with her , Moisés Parham [phone]. Patient has 0 steps to navigate to enter her home and she feels that it is safe. PCP: Dr. Reed. Pharmacy: [facility]. DME: None. Emergency contact: her , Moisés. CM discussed HHS, OP Therapy, SNF, Rehab. Patient states she like to have a rollator and bed side commode [facility]. FLAQUITA signed for same. CM notified Ana at [facility] [phone] regarding need for DME. Ana requested that the order for DME and face Sheet be faxed to [phone]. Patient voices no other needs at this time. DC IMM delivered, explained, signed by the patient, and placed in chart. Signed form also left with the patient. CM will follow and assist PRN. Weigher Operator: Jerad Rodriguez DCPIA - Discharge Planning Initial Assessment Updated by [email or web address]: Jerad Rodriguez on 05/28/20 5:34 pm * Is the patient Alert and Oriented? Yes * How many steps to enter\exit or inside your home? 0/0 * PCP Dr. Reed * Pharmacy [facility] in [place] * Preadmission Environment Home with Family * ADLs Independent * Equipment None * Other Equipment n/a * List name and contact numbers for known caregivers / representatives who currently or will assist patient after discharge: Moisés Parham, spouse, * Verbal permission to speak to the caregivers and representatives has been obtained from the patient. Yes * Community resources currently utilized None * Please name any agencies selected above. none * Additional services required to return to the preadmission environment? Yes * Can the patient safely return to the preadmission environment? Yes * Has this patient been hospitalized within the prior 30 days at any hospital? No External Providers [facility] Provider[facility] Next Contact Date: Service Request Date: Service Type: Resolution: Reviewer: Comments: Last DP export: 05/28/20 4:35 Patient Name: AVEL PARHAM Page [id number] at 1742 All edits/amendments must be made on the electronic document DICTATION DATE: 05/28/201740 ASSISTANT HVAC MECHANIC: ROCIO 05/28/201740 RPT#: [id number] DC DATE: STATUS: ADM IN [facility] [address] [place] [address] END OF REPORT
--- NOTE | 2020-05-28 18:20 | NUR ---
TAKEN TO VEHICLE PER W/C
--- NOTE | 2020-05-28 18:25 | NUR ---
IV DC, TIP INTACT, REVIEWED DC ORDERS WITH PT AND , VOICED NO CONCERNS
--- NOTE | 2020-05-29 09:08 | MORECARE ---
CASE MANAGEMENT DISCHARGE SUMMARY PATIENT: AVEL PARHAM UNIT: [id number] ADM DATE: 05/26/20 AGE: 79 : 42 SEX: F ROOM/BED: D.2240 AUTHOR: INA DEMARCO PHYSICIAN: REFERRING PHYSICIAN: MIKAEL REED MD DATE OF SERVICE: 05/29/20 Discharge Plan Patient Name: AVEL PARHAM Facility: [facility]:[place] : 1940 Planned Disposition: Home Anticipated Discharge Date: 05/28/20 Discharge Date: 05/28/2020 Expected LOS: 2 Initial Reviewer: [email or web address] Initial Review Date: 05/25/2020 Generated: 05/29/20 10:07 am Comments DCP- Discharge Planning Updated by [email or web address]: Jerad Rodriguez on 05/28/20 4:[address] Patient Name: AVEL PARHAM Admission Status: ER Accout number: [id number] Admission Date: 05-26-2020 : 1940 Admission Diagnosis:HYPO-OSMOLALITY AND HYPONATREMIA Attending: MIKAEL REED Current LOS: 2 Anticipated DC Date: 05-28-2020 Planned Disposition: Home Primary Insurance: MEDICARE A & B Discharge Planning Comments: CM met with patient for DC planning. Patient is in agreement with DC Plan. Patient lives at home with her , Moisés Parham [phone]. Patient has 0 steps to navigate to enter her home and she feels that it is safe. PCP: Dr. Reed. Pharmacy: [facility]. DME: None. Emergency contact: her , Moisés. CM discussed HHS, OP Therapy, SNF, Rehab. Patient states she like to have a rollator and bed side commode from [facility]. FLAQUITA signed for same. CM notified Ana at [facility] [phone] regarding need for DME. Ana requested that the order for DME and face Sheet be faxed to [phone]. Patient voices no other needs at this time. DC IMM delivered, explained, signed by the patient, and placed in chart. Signed form also left with the patient. CM will follow and assist PRN. Oil Burner Mechanic: Jerad Rodriguez DCPIA - Discharge Planning Initial Assessment Updated by [email or web address]: Jerad Rodriguez on 05/28/20 5:34 pm * Is the patient Alert and Oriented? Yes * How many steps to enter\exit or inside your home? 0/0 * PCP Dr. Reed * Pharmacy [facility] in [place] * Preadmission Environment Home with Family * ADLs Independent * Equipment None * Other Equipment n/a * List name and contact numbers for known caregivers / representatives who currently or will assist patient after discharge: Moisés Parham, spouse, * Verbal permission to speak to the caregivers and representatives has been obtained from the patient. Yes * Community resources currently utilized None * Please name any agencies selected above. none * Additional services required to return to the preadmission environment? Yes * Can the patient safely return to the preadmission environment? Yes * Has this patient been hospitalized within the prior 30 days at any hospital? No Coverage Notice Reviewer: [email or web address] Linsey Rodriguez Notice Issued Date-Time: 05/28/2020 17:15 Notice Type: IM Discharge Notice Notice Delivered To: Patient Relationship to Patient: Self Vp Customer Development Name: Delivery Method: HAND - Hand Delivered Jodee Days: Prior Verbal Notification: Recipient Understood Notice: Yes Recipient Signature: Yes Med Rec Note Co-signed by Attending: Coverage Notice Comment: DC IMM delivered, explained, signed by the patient, and placed in chart. Signed form also left with the patient. Reviewer: [id number] Linsey Rodriguez Notice Issued Date-Time: 05/28/2020 17:15 Notice Type: Patient Choice Letter Notice Delivered To: Patient Relationship to Patient: Self Vp Customer Development Name: Delivery Method: HAND - Hand Delivered Jodee Days: Prior Verbal Notification: Recipient Understood Notice: Yes Recipient Signature: Yes Med Rec Note Co-signed by Attending: Coverage Notice Comment: Renee MAGDALENO - VIKTOR Dueñas Last DP export: 05/28/20 4:42 Patient Name: AVEL PARHAM Page 10084 at 0908 All edits/amendments must be made on the electronic document DICTATION DATE: 05/29/20906 MANAGER FOOD SAFETY: ROCIO 05/29/20906 RPT#: [id number] DC DATE:05/28/20 STATUS: DIS IN [facility] [address] [place] [address] END OF REPORT
== END 2020-05-28 18:20 | disposition home or self-care (01) | DRG 641 ==
LOC: D.ER 08:05 → D.MS 09:50 → OBSVTIME 11:09 → D.MS 05-26 09:51
PROVIDERS: Emergency Medicine; ADMIT Family Medicine; ATTEND Family Medicine
DX: E87.1 Hypo-osmolality and hyponatremia (principal); R00.1 Bradycardia, unspecified; S09.90XA Unspecified injury of head, initial encounter; W19.XXXA Unspecified fall, initial encounter; I11.0 Hypertensive heart disease with heart failure; I50.9 Heart failure, unspecified; K21.9 Gastro-esophageal reflux disease without esophagitis; I25.10 Atherosclerotic heart disease of native coronary artery without angina pectoris

== ENCOUNTER 2020-10-31 10:38 | Emergency (ER) | payer MEDICARE, BC ==
[~2020-10-31] VITALS: Ht 170.2 cm; Wt 95.5 kg
[~2020-10-31 10:38] MED LIST changes: +BACTRIM 400-801 TAB; +CYCLOBENZAPRINE10 MG PO; +PACERONE100 MG PO; +SYNTHROID112 MCG PO; +VITAMIN D1000 UNI2 PO; +[UNRECOGNIZED DRUG - OTHER]; +[UNRECOGNIZED DRUG - OTHER]
[2020-10-31 10:40] VITALS: Ht 170.2 cm; Wt 95.5 kg
[2020-10-31] MEDS ORDERED: ALDACTONE25 MG PO (10:45)
[2020-10-31 11:04] LABS: BASOPHILS 0.4 % (0-2); EOSINOPHILS 2.5 % (0-7); HEMATOCRIT 39.4 % (36.0-48.0); HEMOGLOBIN 12.6 g/dL (12-16); IMMATURE GRANULOCYTES 0.3 % (0-5); LYMPHOCYTE ABS# 0.96 10x3/uL (1.18-3.74); LYMPHOCYTES 13.1 % (15-50); MCH 32.3 pg (26.0-34.0); MEAN PLATELET VOLUME 11.1 fL (7.4-10.4); NEUTROPHIL ABS# 5.39 10x3/uL (1.56-6.13); NEUTROPHILS 73.7 % (40-80); PLATELET COUNT 156 10x3/uL (130-400); RDW 14.4 % (11.5-14.5); WBC 7.3 10x3/uL (4.8-10.8)
[2020-10-31 11:11] LABS: CALC OSMOLALITY 279 mosm/kg (275-300); CALCIUM 9.1 mg/dL (8.5-10.1); CARBON DIOXIDE 32.3 mmol/L (21.0-32.0); CHLORIDE - SERUM 103 mmol/L (98-107); CREATININE - SERUM 1.2 mg/dL (0.6-1.3); GLUCOSE 106 mg/dL (74-106); SODIUM 139 mmol/L (136-145); UREA NITROGEN 17 mg/dL (7-18); eGFR NON AFRICAN AMERICAN 46 mL/min (90-120)
[2020-10-31 11:27] LABS: ALBUMIN 3.8 g/dL (3.4-5.0); ALKALINE PHOSPHATASE 82 U/L (30-120); ALT (SGPT) 25 U/L (10-68); BILIRUBIN - TOTAL 0.75 mg/dL (0.2-1.3); CKMB 0.9 U/L (0.0-3.6); CREATINE KINASE 142 UL (21-215); PROTEIN - SERUM 7.3 g/dL (6.4-8.2); TROPONIN-I < 0.017 ng/mL (0.000-0.060)
[2020-10-31 12:05] VITALS: BP 113/45
== END 2020-10-31 12:05 | disposition home or self-care (01) ==
LOC: D.ER 10:38
PROVIDERS: Family Medicine
DX: I48.20 Chronic atrial fibrillation, unspecified (principal); R07.89 Other chest pain; K21.9 Gastro-esophageal reflux disease without esophagitis

== ENCOUNTER 2021-01-13 10:58 | Observation (INO) | payer MEDICARE, BC ==
[~2021-01-13] VITALS: Ht 170.2 cm; Wt 95.5 kg
[2021-01-13] VITALS (7 sets, daily range): BP systolic 94–205; BP diastolic 46–74; Ht 170.2 cm; Wt 95.5 kg
[~2021-01-13 10:58] MED LIST changes: +SYNTHROID100 MCG PO
[2021-01-13] MEDS ORDERED: HYDROCODON-ACE1 EAC7 PO (11:12)
[2021-01-13] MEDS ORDERED: ZOCOR20 MG PO (11:12)
[2021-01-13 11:30] LABS: BASOPHILS 1.1 % (0-2); EOSINOPHILS 3.2 % (0-7); HEMATOCRIT 35.9 % (36.0-48.0); HEMOGLOBIN 11.9 g/dL (12-16); LYMPHOCYTES 17.3 % (15-50); MCH 32.4 pg (26.0-34.0); MCHC 33.1 g/dL (31.0-37.0); MEAN PLATELET VOLUME 8.7 fL (7.4-10.4); NEUTROPHILS 68.4 % (40-80); PLATELET COUNT 139 10x3/uL (130-400); RBC 3.66 10x6/uL (4.00-5.40); RDW 14.5 % (11.5-14.5); WBC 5.4 10x3/uL (4.8-10.8)
[2021-01-13 11:37] LABS: APTT 33.6 SECONDS (22.8-39.4); INR 1.19 (0.85-1.17)
[2021-01-13 11:38] LABS: CALC OSMOLALITY 279 mosm/kg (275-300); CALCIUM 8.8 mg/dL (8.5-10.1); CARBON DIOXIDE 30.4 mmol/L (21.0-32.0); CHLORIDE - SERUM 104 mmol/L (98-107); CREATININE - SERUM 1.3 mg/dL (0.6-1.3); GLUCOSE 100 mg/dL (74-106); POTASSIUM - SERUM 4.1 mmol/L (3.5-5.1); SODIUM 139 mmol/L (136-145); UREA NITROGEN 17 mg/dL (7-18); eGFR NON AFRICAN AMERICAN 42 mL/min (90-120)
[2021-01-13 11:53] LABS: ALKALINE PHOSPHATASE 71 U/L (30-120); ALT (SGPT) 21 U/L (10-68); BILIRUBIN - TOTAL 0.61 mg/dL (0.2-1.3); CKMB 1.9 U/L (0.0-3.6); CREATINE KINASE 208 UL (21-215); MAGNESIUM - SERUM 2.1 mg/dL (1.8-2.4); PROTEIN - SERUM 7.1 g/dL (6.4-8.2); TROPONIN-I < 0.017 ng/mL (0.000-0.060)
[2021-01-13 15:06] LABS: CKMB 1.9 U/L (0.0-3.6); CREATINE KINASE 207 UL (21-215)
[2021-01-13 15:08] LABS: TROPONIN-I < 0.017 ng/mL (0.000-0.060)
--- NOTE | 2021-01-13 19:12 | NUR ---
REPORT RECEIVED FROM CRAIG REDDY. PT AT BEDSIDE, RESPIRATIONS APPEAR EVEN AND NON LABORED. PT ON 2L NC. SHE IS ON CATTLE PRODUCERS, BRADYCARDIC WITH RATE IN 50'S. CALL LIGHT WITHIN REACH, BED LOW AND SIDE RAILS UP X2
[2021-01-13 20:33] LABS: CKMB 1.4 U/L (0.0-3.6); CREATINE KINASE 178 UL (21-215)
[2021-01-13 20:34] LABS: TROPONIN-I < 0.017 ng/mL (0.000-0.060)
--- NOTE | 2021-01-13 21:00 | NUR ---
PT ASSISTED TO BEDSIDE COMMODE TO URINATE. REPOSITIONED IN BED PER REQUEST. GIVEN DIET MARGRET PER REQUEST.
--- NOTE | 2021-01-13 22:40 | NUR ---
PT UP TO BEDSIDE COMMMODE TOLERATED WELL
[2021-01-14] VITALS (7 sets, daily range): BP systolic 110–137; BP diastolic 33–449
[2021-01-14 03:10] LABS: CKMB 1.4 U/L (0.0-3.6); CREATINE KINASE 140 UL (21-215)
[2021-01-14 03:16] LABS: TROPONIN-I < 0.017 ng/mL (0.000-0.060)
--- NOTE | 2021-01-14 05:02 | NUR ---
PT AROUSES TO VERBAL STIMULI, REMAINS ON SHORE HAND DREDGE OR BARGE. VOICES REQUEST FOR SPRITE, DIET SAULT [address] MARGRET GIVEN. BELONGINGS AND CALL LIGHT WITHIN REACH, NAD NOTED. SIDE RAILS UP X2.
--- NOTE | 2021-01-14 07:40 | NUR ---
PATIENT SITTING UP IN BED, AWAKE AND ALERT, ORIENTED X 4. AT BEDSIDE. NO DISTRESS NOTED. CALL MORENO IN REACH, SIDE RAILS UP X 2, BED IN LOW POSITION. DENIES ANY NEEDS AT THIS TIME.
[2021-01-14 08:46] LABS: BASOPHILS 0.5 % (0-2); EOSINOPHILS 3.3 % (0-7); HEMATOCRIT 36.2 % (36.0-48.0); LYMPHOCYTES 15.4 % (15-50); MCH 32.2 pg (26.0-34.0); MCV 97.5 fL (80.0-100.0); MEAN PLATELET VOLUME 8.8 fL (7.4-10.4); MONOCYTES 8.6 % (2-11); NEUTROPHILS 72.2 % (40-80); PLATELET COUNT 153 10x3/uL (130-400); RBC 3.71 10x6/uL (4.00-5.40); RDW 14.5 % (11.5-14.5); WBC 5.7 10x3/uL (4.8-10.8)
[2021-01-14 08:53] LABS: ALBUMIN 3.7 g/dL (3.4-5.0); ANION GAP 8.3 mmol/L (8-16); BILIRUBIN - TOTAL 0.62 mg/dL (0.2-1.3); CALCIUM 8.5 mg/dL (8.5-10.1); CARBON DIOXIDE 31.6 mmol/L (21.0-32.0); CREATININE - SERUM 1.4 mg/dL (0.6-1.3); POTASSIUM - SERUM 3.9 mmol/L (3.5-5.1); PROTEIN - SERUM 6.8 g/dL (6.4-8.2)
== END 2021-01-14 10:50 | disposition home or self-care (01) ==
LOC: D.ER 10:58 → OBSVTIME 12:35 → D.EDHOLD 12:35
PROVIDERS: Family Medicine; ADMIT Family Medicine; ATTEND Family Medicine
DX: M94.0 Chondrocostal junction syndrome [Tietze] (principal); R07.89 Other chest pain; I25.10 Atherosclerotic heart disease of native coronary artery without angina pectoris; K21.9 Gastro-esophageal reflux disease without esophagitis; Z79.01 Long term (current) use of anticoagulants; I48.20 Chronic atrial fibrillation, unspecified; I10 Essential (primary) hypertension; R00.1 Bradycardia, unspecified